=== PATIENT | male | born 1970 | race Caucasian/White ===

== ENCOUNTER → 2019-07-03 09:42 | Outpatient (CLI) | payer OTHER, SELFPAY ==
[2017-01-09 10:04] VITALS: BMI 33.5
--- NOTE | 2019-07-03 09:50 | RAD_ITS ---
STUDY: X-RAY - LEFT KNEE REASON FOR EXAM: Male, 49 years old. LEFT KNEE PAIN X 6-8 WEEKS -- NKI -- MEDIAL PAIN TECHNIQUE: Floor view(s) of the knee. COMPARISON: None. FINDINGS: Normal visualized distal femur. Normal visualized proximal tibia and fibula. Normal proximal tibiofibular articulation. Normal medial femorotibial compartment. Normal lateral femorotibial compartment. Mild narrowing of the patellofemoral articulation with minimal spur formation. Small joint effusion in the suprapatellar bursa. The soft tissue structures are unremarkable. RAD/Knee 4 or More Views IMPRESSION: 1. 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 2. No acute osseous abnormality of the left knee. Electronically Signed: Lincoln House MD at 10:19 EST , Service support ,
== END ==
PROVIDERS: Referring Provider Family Medicine; Visit Provider Family Medicine
DX: M25.562 Pain in left knee (principal)
CPT/HCPCS: 73564

== ENCOUNTER 2021-09-19 14:26 | Outpatient (CLI) | payer OTHER, SELFPAY ==
[2021-09-19 15:29] LABS: Erythrocyte Sedimentation Rate 21 mm/hr (0-20)
[2021-09-19 15:32] LABS: Absolute Lymphocyte Count 1.54 X10^3/uL (0.83-4.51); Absolute Neutrophil Count 4.9 X10^3/uL (2.0-7.7); Basophil# 0.09 X10^3/uL; Basophil% 1.3 % (0-1); Eosinophil# 0.06 X10^3/uL; Eosinophils% 0.8 % (0-5); Hematocrit 46.1 % (40-54); Hemoglobin 15.9 g/dL (13.0-16.5); Lymphocyte # 1.54 X10^3/ul (0.83-4.51); Lymphocyte % 21.5 % (19-41); Mean Corp Hgb Conc 34.5 g/dL (32-36); Mean Corpuscular Hgb 31.9 pg (27.0-32.0); Mean Corpuscular Volume 92.6 fL (80-94); Mean Platelet Vol. 10.4 fl (6.2-12.0); Monocyte% 8.4 % (0-10); NRBC Flagged by Analyzer 0 % (0-5); Neutrophil # 4.85 X10^3/uL (2.7-7.7); Neutrophil % 67.7 % (47-70); Platelet Count 201 K/mm3 (150-450); RBC Distribution Width CV 11.9 % (11.6-14.6); RBC Distribution Width SD 41.1 fl (35.1-43.9); Red Blood Count 4.98 M/mm3 (4.6-6.2); White Blood Count 7.2 K/mm3 (4.4-11.0)
[2021-09-19 15:38] LABS: ALB/GLOB Ratio 0.9 RATIO (0.9-2.4); AST(SGOT) 242 U/L (15-37); Alanine Aminotransfer ALT/SGPT 129 U/L (16-61); Albumin, Serum 3.9 g/dL (3.2-5.0); Alkaline Phosphatase 116 U/L (45-117); Anion Gap 8 (5-15); BUN 7 mg/dL (7-18); BUN/Creat Ratio 8.8 RATIO (10-20); Bilirubin, Direct 0.26 mg/dL (0.00-0.30); Calcium,Total 9.7 mg/dL (8.5-10.1); Chloride 99 mmol/L (98-107); Creatinine, Serum 0.79 mg/dL (0.70-1.30); EST Glomerular Filtration Rate 110 mL/min (>60); Est Glom Filt Rate - Afr Amer 133 mL/min (>60); Ferritin 1275 ng/mL (26-388); Globulin 4.2 g/dL (2.2-4.2); Glucose 103 mg/dL (74-106); Protein, Total 8.1 g/dL (6.4-8.2); Sodium Level 135 mmol/L (136-145)
[2021-09-19 15:40] LABS: Vitamin B12 1248 pg/mL (211-911)
[2021-09-19 16:06] LABS: Prothrombin Time (Protime)PT. 13.1 SECONDS (11.7-14.9)
[2021-09-23 20:24] LABS: Vitamin D 1,25-Dihydroxy 35.9 pg/mL (19.9-79.3)
[2021-09-28 01:06] LABS: Endomysial Antibody IgA Negative (Negative); Immunoglobulin A 207 mg/dL (90-386); Immunoglobulin E 212 IU/mL (6-495); Immunoglobulin G 965 mg/dL (603-1613); Immunoglobulin M 93 mg/dL (20-172)
[2021-09-28 09:35] LABS: Gastrin, Serum < 10 pg/mL (0-115); t-Transglutaminase IgA <2 U/mL (0-3)
== END 2021-09-19 23:59 | disposition home or self-care (01) ==
LOC: LAB 14:28
PROVIDERS: Referring Provider Nurse Practitioner Adult Health; Visit Provider Nurse Practitioner Adult Health
DX: K52.9 Noninfective gastroenteritis and colitis, unspecified (principal); R11.10 Vomiting, unspecified
CPT/HCPCS: 36415; 80053; 82248; 82607; 82652; 82728; 82746; 82784; 82785; 82941; 83516; 84443; 85025; 85610; 85652; 86140; 86255

== ENCOUNTER → 2021-09-26 | Outpatient (CLI) | payer OTHER, SELFPAY ==
--- NOTE | 2021-09-26 08:19 | US_ITS ---
STUDY: ABDOMINAL ULTRASOUND - RIGHT UPPER QUADRANT REASON FOR VISIT: Male, 51 years old chronic vomiting, chronic diarrhea, alcohol abuse -- RUQ TECHNIQUE: Ultrasound evaluation of the right upper quadrant was performed with real-time and static gramajo-scale imaging. TECHNICAL QUALITY: Adequate. COMPARISON: None. FINDINGS: Liver: The liver is enlarged and measures 20.5 cm. There is increased echogenicity consistent with fatty infiltration. The bile ducts are within normal limits. There is hepatic color flow. The direction of portal flow is hepatopetal. There is no demonstrated mass lesion. Gallbladder: Normal distended gallbladder. The gallbladder wall measures 3 mm. There is a negative sonographic Pizano''s sign. There is no pericholecystic fluid. There are no gallstones. Common Bile Duct (C.B.D.): The common bile duct measures 5 mm. Pancreas: Normal size of the head, body and tail of the pancreas. There is normal echogenicity of the pancreas. There is no demonstrated pancreatic mass or cyst. Right Kidney: Normal size of the right kidney. The right kidney measures 11.9 cm x 5 cm x 5.6 cm. Normal renal cortex. The right cortex measures 1.7 cm. There is no demonstrated renal mass or cyst. There is no right hydronephrosis. US/Abdomen Limited IMPRESSION: Hepatomegaly and diffuse fatty infiltration of the liver. Electronically Signed: Robin Joyce MD at 14:44 EDT ,
[2021-09-29 10:02] LABS: Calprotectin, Stool 23 ug/g (0-120)
== END | disposition home or self-care (01) ==
PROVIDERS: PCP Family Medicine; Referring Provider Nurse Practitioner Adult Health; Visit Provider Nurse Practitioner Adult Health
DX: K52.9 Noninfective gastroenteritis and colitis, unspecified (principal); R11.10 Vomiting, unspecified; R10.11 Right upper quadrant pain; R19.7 Diarrhea, unspecified
CPT/HCPCS: 76705; 83630; 83993; 87177; 87209; 87329; 87493; 87506

== ENCOUNTER 2022-05-23 18:12 | Inpatient (IN) | payer OTHER, SELFPAY ==
[2022-05-23] VITALS (10 sets, daily range): BP systolic 80–136; BP diastolic 49–91; PULSE 90–120; RESP 12–22; TEMP 36.6–36.7; O2SAT 87–96; BMI 34.8
--- NOTE | 2022-05-23 18:57 | EDS_ITS ---
HPI HPI - GI History of Present Illness Chief Complaint: GI Bleed Informant: patient Narrative Narrative: About 4 hours ago, patient had sudden urge to defecate and he had a large amount of blood per rectum. A little bit later, he ate dinner and subsequently felt nauseated and vomited up food with a significant amount of blood and some clots. No coffee grounds or anything else unusual. He denies any abdominal pain. Never had this happen before. Takes no anticoagulants. States he has noticed unexplained bruising off and on for a while. Denies any known family history of bleeding or clotting disorders but states his mom is on a blood thinner for unknown reason but has multiple medical problems. Right now he has unexplained bruising on both of his thighs and his right anterior knee. He denies any pain there. He has not had any unknown bleeding from anywhere including his intestines in the past. He takes no antiplatelet medications. He admits to being somewhat of a heavy drinker for the past 4 years, drinking 4- 6 drinks of vodka per night. Today he has had about a cup of it so far. [facility] Medical History Alcohol use disorder Arthritis Chronic diarrhea Chronic vomiting COPD (chronic obstructive pulmonary disease) Diarrhea Erectile dysfunction Fatty liver Hypertension Insomnia Lumbar degenerative disc disease Plantar fasciitis Tobacco use Vomiting Home Medications amitriptyline 25 mg tablet 25 mg PO DAILY 08/24/21 [History Last Taken Unknown] amlodipine 5 mg tablet 5 mg PO DAILY 08/24/21 [History Last Taken Unknown] celecoxib 200 mg capsule (Celebrex) 200 mg PO DAILY 08/24/21 [History Last Taken Unknown] lisinopril 20 mg tablet 20 mg PO BID 08/24/21 [History Last Taken Unknown] meloxicam 15 mg tablet 15 mg PO DAILY 08/24/21 [History Last Taken Unknown] sildenafil (pulm.hypertension) 20 mg tablet 20 mg PO BID 08/24/21 [History Last Taken Unknown] Allergy/AdvReac Type Severity Reaction Status Date / Time No Known Allergies Allergy Verified 05/23/22 18:13 Family History Mother Diabetes Surgical History Hx of tonsillectomy Social History Smoking Status: Current every day smoker tobacco type: cigarettes alcohol intake: current alcohol intake frequency: 0-2 drinks per day ROS ROS ED Constitutional Constitutional ED: Reports malaise; Denies chills or fever(s) Eyes Eyes: Denies change in vision or diplopia ENT ENT ED: Denies rhinorrhea or sore throat Cardiovascular Cardiovascular: Denies chest pain or palpitations Respiratory/Chest Respiratory/Chest: Denies cough or dyspnea Gastrointestinal Gastrointestinal: Reports hematochezia, nausea and vomiting; Denies abdominal pain, diarrhea, hemorrhoids or melena Genitourinary Genitourinary ED: Denies dysuria or hematuria Musculoskeletal Musculoskeletal: Denies back pain or neck pain Integumentary Denies abscess or rash Neurologic Neurologic: Denies headache(s), paresthesias or weakness Psychiatric Psychiatric: Denies anxiety or suicidal thoughts Hematologic/Lymphatic Hematologic/Lymphatic: Reports easy bleeding and easy bruising EXAM Physical Exam Const Vital Signs: 05/23/22 18:13 05/23/22 19:00 05/23/22 19:22 Temperature 97.8 F Temperature Source Temporal Pulse Rate 120 H 93 Respiratory Rate 18 17 Blood Pressure 113/81 H 103/65 Blood Pressure Mean 91 77 Pulse Ox 94 87 95 Oxygen Delivery Method Room Air Room Air Nasal Cannula Oxygen Flow Rate (L/min) 2 05/23/22 19:50 05/23/22 20:45 Temperature Temperature Source Pulse Rate 93 90 Respiratory Rate 17 16 Blood Pressure 109/77 121/86 H Blood Pressure Mean 87 97 Pulse Ox 96 96 Oxygen Delivery Method Nasal Cannula Nasal Cannula Oxygen Flow Rate (L/min) 2 2 Positive well nourished and well developed General Appearance ED: well developed and NAD HEENT Reports moist mucous membranes normocephalic and atraumatic Eyes PERRL and EOMs intact bilaterally Neck full ROM and supple Resp normal respiratory effort and clear to auscultation bilaterally Cardio regular rate, regular rhythm and no murmurs GI non-tender and non-distended GI Narrative: Rectal: Nontender, trace blood present no active bleeding/pooling Auscultation: normoactive bowel sounds Palpation: soft Back/Spine no CVA tenderness General Back: other FROM Extremity normal to inspection General Extremety ED: Negative for edema, pulses abnormal or tenderness General Extremity: Negative for edema or pulses abnormal Neuro oriented x3, CN's II-XII intact bilaterally and no sensory deficits noted Sensorium / Orientation: awake and alert Motor Exam: strength 5/5 throughout Psych mental status grossly normal and thought process normal Skin no rashes or lesions noted and no wounds Skin Narrative: Couple ecchymoses on both thighs and right anterior knee. MDM MDM MDM Narrative Medical decision making narrative: Patient was initially hypotensive, a line was started immediately and IV fluid bolus was begun, normal saline. His blood pressure responded nicely and he did not become hypotensive again. He was given Zofran, and empirically started on Protonix drip, after being provided an 80 mg bolus. He did not have any further episodes of GI bleeding or vomiting. His work-up shows a normal hemoglobin at this time of 13.7, his BUN is elevated to suggest an upper source which would be consistent with his alcohol use, as is a slight AST and ALT elevations. Working diagnosis of alcoholic gastritis, but given the transient hypotension and amount of bleeding the patient described, discussed with GI who agrees with admitting him and request Rocephin 1 g every 24 hours in addition to starting an octreotide drip which will be done in the ER. Lab Data Attestation: I reviewed the patient's lab results. Labs: Laboratory Results - last 24 hr 05/23/22 05/23/22 05/23/22 18:52 18:52 18:52 WBC 9.5 RBC 4.23 L Hgb 13.7 Hct 41.3 MCV 97.6 H MCH 32.4 H MCHC 33.2 RDW Std Deviation 46.5 H RDW Coeff of Mignon 13.0 Plt Count 231 MPV 10.5 Immature Gran % (Auto) 0.300 Neut % (Auto) 65.8 Lymph % (Auto) 23.3 [place] % (Auto) 8.7 Eos % (Auto) 1.1 Baso % (Auto) 0.8 Absolute Neuts (auto) 6.3 Absolute Lymphs (auto) 2.22 Nucleated RBC % 0 PT 13.8 INR 1.1 APTT 27.1 Fibrinogen 283 Sodium 135 L Potassium 4.3 Chloride 99 Carbon Dioxide 30.0 Anion Gap 6 BUN 25 H Creatinine 1.05 Estim Creat Clear Calc 88.65 Est GFR (MDRD) Af Amer 96 Est GFR (MDRD) Non-Af 79 BUN/Creatinine Ratio 23.8 H Glucose 125 H Calcium 9.3 Total Bilirubin 0.90 Direct Bilirubin 0.31 H AST 106 H ALT 124 H Alkaline Phosphatase 85 Total Protein 7.0 Albumin 3.5 Globulin 3.5 Blood Type Antibody Screen 05/23/22 19:17 WBC RBC Hgb Hct MCV MCH MCHC RDW Std Deviation RDW Coeff of Mignon Plt Count MPV Immature Gran % (Auto) Neut % (Auto) Lymph % (Auto) [place] % (Auto) Eos % (Auto) Baso % (Auto) Absolute Neuts (auto) Absolute Lymphs (auto) Nucleated RBC % PT INR APTT Fibrinogen Sodium Potassium Chloride Carbon Dioxide Anion Gap BUN Creatinine Estim Creat Clear Calc Est GFR (MDRD) Af Amer Est GFR (MDRD) Non-Af BUN/Creatinine Ratio Glucose Calcium Total Bilirubin Direct Bilirubin AST ALT Alkaline Phosphatase Total Protein Albumin Globulin Blood Type O POSITIVE Antibody Screen NEGATIVE Critical Care Time Critical Care Time: Yes Critical care time (excluding procedures): 30-74 minutes (34 min), Including time spent:, Discussing w/Patient &/or Family/Commercial Credit Head, Discussing w/Consultants, Arranging Admission or Transfer and Performing Direct Patient Care at Bedside Discharge Plan Triage Chief Complaint: GI Bleed ED Provider: Alfredo Koch Dx/Rx/DC Orders Clinical Impression: Acute upper gastrointestinal bleeding, Hemorrhagic shock, Acute alcoholic gastritis Prescriptions: No Action amitriptyline 25 mg tablet 25 mg PO DAILY amlodipine 5 mg tablet 5 mg PO DAILY celecoxib [Celebrex] 200 mg capsule 200 mg PO DAILY lisinopril 20 mg tablet 20 mg PO BID sildenafil (pulm.hypertension) 20 mg tablet 20 mg PO BID Rx Instructions: administer doses at least 4-6 hours apart meloxicam 15 mg tablet 15 mg PO DAILY Primary Care Provider: Pasquale Lopez Referrals: Pasquale Lopez DO [Primary Care Provider] - Disposition Disposition: Acute Care Hospital [facility]
[2022-05-23] MEDS: 0.9% Normal Saline 1,000 ML 999 ML IV ×2 (19:01→23:49)
[2022-05-23] MEDS: Ondansetron 4 MG/2 ML Vial IV (19:05)
[2022-05-23 19:13] LABS: Absolute Lymphocyte Count 2.22 X10^3/uL (0.83-4.51); Absolute Neutrophil Count 6.3 X10^3/uL (2.0-7.7); Basophil# 0.08 X10^3/uL; Basophil% 0.8 % (0-1); Eosinophils% 1.1 % (0-5); Hematocrit 41.3 % (40-54); Hemoglobin 13.7 g/dL (13.0-16.5); Lymphocyte # 2.22 X10^3/ul (0.83-4.51); Lymphocyte % 23.3 % (19-41); Mean Corp Hgb Conc 33.2 g/dL (32-36); Mean Corpuscular Hgb 32.4 pg (27.0-32.0); Mean Corpuscular Volume 97.6 fL (80-94); Mean Platelet Vol. 10.5 fl (6.2-12.0); Monocyte# 0.83 X10^3/uL; Monocyte% 8.7 % (0-10); NRBC Flagged by Analyzer 0 % (0-5); Neutrophil # 6.26 X10^3/uL (2.7-7.7); Neutrophil % 65.8 % (47-70); Platelet Count 231 K/mm3 (150-450); RBC Distribution Width SD 46.5 fl (35.1-43.9); Red Blood Count 4.23 M/mm3 (4.6-6.2); White Blood Count 9.5 K/mm3 (4.4-11.0)
[2022-05-23 19:29] LABS: Fibrinogen 283 mg/dl (203-444)
[2022-05-23 19:30] LABS: AST(SGOT) 106 U/L (15-37); Alanine Aminotransfer ALT/SGPT 124 U/L (16-61); Albumin, Serum 3.5 g/dL (3.2-5.0); Alkaline Phosphatase 85 U/L (45-117); Anion Gap 6 (5-15); BUN 25 mg/dL (7-18); BUN/Creat Ratio 23.8 RATIO (10-20); Bilirubin, Direct 0.31 mg/dL (0.00-0.30); Calcium,Total 9.3 mg/dL (8.5-10.1); Chloride 99 mmol/L (98-107); Creatinine, Serum 1.05 mg/dL (0.70-1.30); EST Glomerular Filtration Rate 79 mL/min (>60); Est Glom Filt Rate - Afr Amer 96 mL/min (>60); Estimated Creatinine Clearance 88.65 ml/min; Globulin 3.5 g/dL (2.2-4.2); Glucose 125 mg/dL (74-106); Partial Thromboplast Time 27.1 Seconds (24.1-36.2); Potassium 4.3 mmol/L (3.5-5.1); Sodium Level 135 mmol/L (136-145)
[2022-05-23 19:35] LABS: International Normalized Ratio 1.1; Prothrombin Time (Protime)PT. 13.8 SECONDS (11.7-14.9)
--- NOTE | 2022-05-23 21:15 | PCM.HP.STD ---
HPI - General General Date of Admission: 05/23/22 Date of Service: 05/23/22 Chief Complaint: Hematemesis and hematochezia HPI Narrative ANKUR HUBBARD, is a 52 M with a significant history of alcoholism; tobacco abuse and hypertension who presents emergency department with hematemesis and hematochezia. Patient reported that while at 2 different shops he had maroon color stool x1 at each place.. At home he had two episodes of bright red blood in his stool. After eating patient vomited and there was blood in the vomitus. All his symptoms have been on the same day of presentation. Patient is an alcoholic who drinks reportedly 10 drinks per day. He drinks vodka. On the day of presentation he drank 2 times before coming to the emergency department. ED DOC discussed the case with ict systems test engineer who recommended octreotide and ceftriaxone in addition to Protonix that patient was given at the ED. [facility] Medical History Alcohol use disorder Arthritis Chronic diarrhea Chronic vomiting COPD (chronic obstructive pulmonary disease) Diarrhea Erectile dysfunction Fatty liver Hypertension Insomnia Lumbar degenerative disc disease Plantar fasciitis Tobacco use Vomiting Home Medications amitriptyline 25 mg tablet 25 mg PO DAILY 08/24/21 [History Last Taken Unknown] amlodipine 5 mg tablet 5 mg PO DAILY 08/24/21 [History Last Taken Unknown] celecoxib 200 mg capsule (Celebrex) 200 mg PO DAILY 08/24/21 [History Last Taken Unknown] lisinopril 20 mg tablet 20 mg PO BID 08/24/21 [History Last Taken Unknown] meloxicam 15 mg tablet 15 mg PO DAILY 08/24/21 [History Last Taken Unknown] sildenafil (pulm.hypertension) 20 mg tablet 20 mg PO BID 08/24/21 [History Last Taken Unknown] Allergy/AdvReac Type Severity Reaction Status Date / Time No Known Allergies Allergy Verified 05/23/22 18:13 Family History Mother Diabetes Surgical History Hx of tonsillectomy Social History Smoking Status: Current every day smoker tobacco type: cigarettes alcohol intake: current alcohol intake frequency: 0-2 drinks per day ROS ROS Narrative Pertinent positives and pertinent negatives as noted in HPI. All other systems were reviewed and are negative Vital Signs Vital Signs Vital Signs: 05/23/22 18:13 05/23/22 19:00 05/23/22 19:22 Temperature 97.8 F Temperature Source Temporal Pulse Rate 120 H 93 Respiratory Rate 18 17 Blood Pressure 113/81 H 103/65 Blood Pressure Mean 91 77 Pulse Ox 94 87 95 Oxygen Delivery Method Room Air Room Air Nasal Cannula Oxygen Flow Rate (L/min) 2 05/23/22 19:50 05/23/22 20:45 Temperature Temperature Source Pulse Rate 93 90 Respiratory Rate 17 16 Blood Pressure 109/77 121/86 H Blood Pressure Mean 87 97 Pulse Ox 96 96 Oxygen Delivery Method Nasal Cannula Nasal Cannula Oxygen Flow Rate (L/min) 2 2 Weight Weight: 113.3 kg Body Mass Index (BMI) 34.8 Physical Exam Narrative Physical exam: General: Well-nourished, well-developed. Head: Normocephalic, atraumatic, no tenderness Eyes: Vision is grossly intact. EOMI ENT, no trauma, moist mucous membranes, no rhinorrhea Neck: Nontender, No thyromegaly. CVS: Regular rate and rhythm. S1-S2 present. No murmur, gallop or rub. Respiratory : clear to auscultation bilaterally, chest wall nontender, no wheezing Abdomen: Soft, nontender, nondistended, normal bowel sounds, no masses : Deferred Back: Nontender, no CVA tenderness, no midline spinal tenderness, deformities, step-offs Extremities: Nontender full range of motion, no trauma. Ecchymosis on left knee. Scattered petechiae on bilateral lower extremities. Skin: Normal color, no trauma, abrasions Neuro: Alert, oriented, cranial nerves II through XII grossly intact. Psychiatry: Normal mood. Normal affect. Not depressed. Not anxious. Results Lab / Micro Data Result Diagrams: 05/24/22 02:35 05/23/22 18:52 Labs: Laboratory Results - last 24 hr 05/23/22 18:52: WBC 9.5, RBC 4.23 L, Hgb 13.7, Hct 41.3, MCV 97.6 H, MCH 32.4 H, MCHC 33.2, RDW Std Deviation 46.5 H, RDW Coeff of Mignon 13.0, Plt Count 231, MPV 10.5, Immature Gran % (Auto) 0.300, Neut % (Auto) 65.8, Lymph % (Auto) 23.3, [place] % (Auto) 8.7, Eos % (Auto) 1.1, Baso % (Auto) 0.8, Absolute Neuts (auto) 6.3, Absolute Lymphs (auto) 2.22, Nucleated RBC % 0 05/23/22 18:52: PT 13.8, INR 1.1, APTT 27.1, Fibrinogen 283 05/23/22 18:52: Sodium 135 L, Potassium 4.3, Chloride 99, Carbon Dioxide 30.0, Anion Gap 6, BUN 25 H, Creatinine 1.05, Estim Creat Clear Calc 88.65, Est GFR (MDRD) Af Amer 96, Est GFR (MDRD) Non-Af 79, BUN/Creatinine Ratio 23.8 H, Glucose 125 H, Calcium 9.3, Total Bilirubin 0.90, Direct Bilirubin 0.31 H, AST 106 H, ALT 124 H, Alkaline Phosphatase 85, Total Protein 7.0, Albumin 3.5, Globulin 3.5 05/23/22 19:17: Blood Type O POSITIVE, Antibody Screen NEGATIVE Assessment & Plan Assessment/Plan (1) Acute upper gastrointestinal bleeding: PLAN: Plan Acute upper gastrointestinal bleeding Initial hemoglobin on presentation was 13.7. Trend H&H. BUN elevated at 25. Reportedly the patient was hypotensive with systolic blood pressure in the 70s initially at the ED but responded to IV fluids. Thereafter patient got up to go to very diaphoretic at the emergency department and was hypotensive again. Normal saline bolus was given. Patient to be admitted to the intensive care unit. Placed on a octreotide drip and Protonix drip at emergency department and continued. Ceftriaxone IV ordered. GI consult. Alcoholism Placed on CIWA protocol with ativan. IV thiamine and IV folic acid ordered. Hyponatremia Mildly low sodium of 135, chronic. Likely secondary to beer potomania. Consult. Elevated liver enzymes AST of 106. ALT of 124. Review of record showed that on 09/19/2021 his AST was 242; his ALT was 129. Like secondary to alcoholism. Counseled. History of hypertension Patient noted to be hypotensive at emergency department. Hold home blood pressure medications. Trend blood pressures. DVT prophylaxis: SCDs ordered. Charges/Coding Visit Charges Inpatient E&M: 85043 Init Hosp L3
[2022-05-23] MEDS: Ceftriaxone 1 GM/50 ML BAG IV (21:25)
--- NOTE | 2022-05-23 23:00 | CON.PCM.GI_ITS ---
HPI Consult Data Date of Consult: 05/23/22 HPI Narrative Reason for Consultation: GI bleed HPI Narrative: ANKUR HUBBARD, is a 52 M who presents with hematemesis and melanotic stools. He was recently seen in GI clinic for chronic diarrhea and heartburn. He was scheduled to have a EGD and colonoscopy in the near future. 5 he has a signifi cant history of alcoholism; tobacco abuse and hypertension who presents emergency department with hematemesis and hematochezia.? Patient reported that while at 2 different shops he had maroon color stool x1 at each place.. At home he had two episodes of bright red blood in his stool.? After eating patient vomited and there was blood in the vomitus.? All his symptoms have been on the same day of presentation. Patient is an alcoholic who drinks reportedly 10 drinks per day.? He? drinks vodka.? On the day of presentation he drank 2 times before coming to the emergency department. I recommended octreotide and ceftriaxone in addition to Protonix that patient was given at the ED. [facility] Medical History Alcohol use disorder Arthritis Chronic diarrhea Chronic vomiting COPD (chronic obstructive pulmonary disease) Diarrhea Erectile dysfunction Fatty liver Hypertension Insomnia Lumbar degenerative disc disease Plantar fasciitis Tobacco use Vomiting Home Medications amitriptyline 25 mg tablet 25 mg PO DAILY 08/24/21 [History Last Taken Unknown] amlodipine 5 mg tablet 5 mg PO DAILY 08/24/21 [History Last Taken Unknown] celecoxib 200 mg capsule (Celebrex) 200 mg PO DAILY 08/24/21 [History Last Taken Unknown] lisinopril 20 mg tablet 20 mg PO BID 08/24/21 [History Last Taken Unknown] meloxicam 15 mg tablet 15 mg PO DAILY 08/24/21 [History Last Taken Unknown] sildenafil (pulm.hypertension) 20 mg tablet 20 mg PO BID 08/24/21 [History Last Taken Unknown] Allergy/AdvReac Type Severity Reaction Status Date / Time No Known Allergies Allergy Verified 05/23/22 18:13 Family History Mother Diabetes Surgical History Hx of tonsillectomy Social History Smoking Status: Current every day smoker tobacco type: cigarettes alcohol intake: current alcohol intake frequency: 0-2 drinks per day ROS ROS Narrative Pertinent positives and pertinent negatives as noted in HPI. All other systems were reviewed and are negative Review of Systems ROS Unobtainable: other Constitutional Constitutional: Denies fatigue, fever(s), poor appetite, weight gain or weight loss ENT HEENT: Denies mouth lesions Cardiovascular Cardiovascular: Denies abdominal bloating, abdominal edema or abdominal pain Respiratory/Chest Respiratory/Chest: Denies change in mental status, change in phlegm color, chest congestion or chest tightness Gastrointestinal Gastrointestinal: Denies belching, bloating, change in bowel habits, change in stool character, chewing difficulty, coffee ground emesis, constipation, cramping, diarrhea, dyspepsia, dysphagia, early satiety, excessive flatus, fecal incontinence, heartburn, hematemesis, hematochezia, hemorrhoids, loose stools, melena, nausea, odynophagia, rectal bleeding, tenesmus, vomiting or weight changes Genitourinary Genitourinary: Denies abdominal discomfort, burning urination or itching Musculoskeletal Musculoskeletal: Reports as per HPI; Denies muscle weakness or myalgias Integumentary Integumentary: Denies jaundice Neurologic Neurologic: Denies lack of coordination or weakness Psychiatric Psychiatric: Denies confusion, depression, memory loss, mood swings, paranoia or suicidal ideation Endocrine Endocrinology: Denies systems reviewed and no addt'l complaints, except as documented Hematologic/Lymphatic Hematologic/Lymphatic: Denies anemia, easy bleeding, easy bruising or lymph adenopathy Allergic/Immunologic Allergic/Immunologic: Denies systems reviewed and no addt'l complaints, except as documented Physical Exam Narrative Physical exam General: Alert, Oriented x3, Cooperative. No tremors. HEENT: Atraumatic, PERRLA, EOMI, Normocephalic. No obvious icterus Oral: Oral mucosa moist. No Gingival or Mucosal Lesions/ Ulcerations Neck: Supple, No JVD, Negative Carotid Bruits Lungs: Air entry diminished in bilateral lung bases. No crepitation/rhonchi Cardiovascular: Regular rate, Regular Rhythm, Normal S1, Normal S2, No murmurs Abdomen: Bowel Sounds Present, Soft, Non Tender, Non-Distended : No renal angle tenderness. No suprapubic tenderness. Extremities: No edema, Capillary Refill Less than 3 Seconds Skin: No rashes, No breakdown Musculoskeletal: No Tenderness to Palpation of Joints or Extremities Neurological: Cranial nerves II-XII grossly intact, DTR 2+/4 and Symmetrical, Neuro grossly intact Psych/Mental Status: Flat affect Lab / Micro Data Result Diagrams: 05/24/22 16:11 05/24/22 04:25 Labs: Laboratory Results - last 24 hr 05/23/22 18:52: WBC 9.5, RBC 4.23 L, Hgb 13.7, Hct 41.3, MCV 97.6 H, MCH 32.4 H, MCHC 33.2, RDW Std Deviation 46.5 H, RDW Coeff of Mignon 13.0, Plt Count 231, MPV 10.5, Immature Gran % (Auto) 0.300, Neut % (Auto) 65.8, Lymph % (Auto) 23.3, [place] % (Auto) 8.7, Eos % (Auto) 1.1, Baso % (Auto) 0.8, Absolute Neuts (auto) 6.3, Absolute Lymphs (auto) 2.22, Nucleated RBC % 0 05/23/22 18:52: PT 13.8, INR 1.1, APTT 27.1, Fibrinogen 283 05/23/22 18:52: Sodium 135 L, Potassium 4.3, Chloride 99, Carbon Dioxide 30.0, Anion Gap 6, BUN 25 H, Creatinine 1.05, Estim Creat Clear Calc 88.65, Est GFR (MDRD) Af Amer 96, Est GFR (MDRD) Non-Af 79, BUN/Creatinine Ratio 23.8 H, Glucose 125 H, Calcium 9.3, Total Bilirubin 0.90, Direct Bilirubin 0.31 H, AST 106 H, ALT 124 H, Alkaline Phosphatase 85, Total Protein 7.0, Albumin 3.5, Globulin 3.5 05/23/22 19:17: Blood Type O POSITIVE, Antibody Screen NEGATIVE 05/24/22 02:35: Hgb 10.2 L, Hct 31.5 L 05/24/22 02:35: Sodium Cancelled, Potassium Cancelled, Chloride Cancelled, Carbon Dioxide Cancelled, Anion Gap Cancelled, BUN Cancelled, Creatinine Cancelled, Estim Creat Clear Calc Cancelled, Est GFR (MDRD) Af Amer Cancelled, Est GFR (MDRD) Non-Af Cancelled, BUN/Creatinine Ratio Cancelled, Glucose Cancelled, Calcium Cancelled 05/24/22 04:25: Sodium 135 L, Potassium 5.5 H, Chloride 103, Carbon Dioxide 26.0, Anion Gap 6, BUN 31 H, Creatinine 0.95, Estim Creat Clear Calc 97.98, Est GFR (MDRD) Af Amer 107, Est GFR (MDRD) Non-Af 89, BUN/Creatinine Ratio 32.6 H, Glucose 137 H, Calcium 7.7 L 05/24/22 08:40: Hgb 9.6 L, Hct 28.3 L 05/24/22 16:11: Hgb 8.8 L, Hct 27.9 L Assessment & Plan Assessment/Plan (1) Acute upper gastrointestinal bleeding: PLAN: Differential diagnosis for his acute GI bleed in the setting of NSAID usage in alcoholism does include alcoholic gastritis, peptic ulcer disease, angiodysplasia associated with alcoholism and possible portal hypertension, malignancy. He should undergo an emergent upper endoscopy. I had already put him on Protonix and Sandostatin. He should remain n.p.o. He was explained alternatives, risk, benefits include not withstanding bleeding, infection, sepsis, perforation, need for emergent or . He will have an ASA of 3. Charges/Coding Visit Charges Inpatient E&M: 78384 Init Hosp L2
--- NOTE | 2022-05-23 23:51 | ED.RN ---
PT UP TO BSC. CAME OUT TO NURSE DESK AND SAID PT WOULD LIKE TO GET UP TO THE BATHROOM INSTEAD. WENT IN TO ASSIST PATIENT. PT NOTED TO BE DIAPHORETIC AND PALE. PT ASSISTED FROM BSC TO BED. BP 82/49, HR 100. DR. CADENA UPDATED. NEW ORDER TO GIVE 1 LITER NS BOLUS STAT & CHANGE ADMISSION TO ICU. CHARGE NURSE AND HUMID SYSTEM OPERATOR AWARE. SPOUSE REMAINS AT BEDSIDE & UPDATED ON ADMISSION PLAN.
[2022-05-24] VITALS (32 sets, daily range): BP systolic 61–139; BP diastolic 45–98; PULSE 93–118; RESP 12–22; TEMP 36.6–36.9; O2SAT 90–100; BMI 34.9
[2022-05-24 02:40] LABS: Hematocrit 31.5 % (40-54); Hemoglobin 10.2 g/dL (13.0-16.5)
[2022-05-24] MEDS: 0.9% Normal Saline 1,000 ML 100 ML IV ×2 (02:49→14:43)
[2022-05-24 04:50] LABS: Anion Gap 6 (5-15); BUN 31 mg/dL (7-18); BUN/Creat Ratio 32.6 RATIO (10-20); Calcium,Total 7.7 mg/dL (8.5-10.1); Chloride 103 mmol/L (98-107); Creatinine, Serum 0.95 mg/dL (0.70-1.30); EST Glomerular Filtration Rate 89 mL/min (>60); Est Glom Filt Rate - Afr Amer 107 mL/min (>60); Estimated Creatinine Clearance 97.98 ml/min; Glucose 137 mg/dL (74-106); Potassium 5.5 mmol/L (3.5-5.1); Sodium Level 135 mmol/L (136-145)
[2022-05-24 08:48] LABS: Hematocrit 28.3 % (40-54); Hemoglobin 9.6 g/dL (13.0-16.5)
--- NOTE | 2022-05-24 09:08 | PCM.PN.HOSP ---
Subjective Subjective Follow-up for GI bleed Objective Data Objective Data Vital Signs: Vital Signs Temp Pulse Resp BP Pulse Ox O2 Del Method O2 Flow Rate 98.2 F 98 12 89/64 L 94 Nasal Cannula 2 05/24/22 04:00 05/24/22 06:00 05/24/22 06:00 05/24/22 06:00 05/24/22 07:36 05/24/22 07:36 05/24/22 07:36 Oxygen Flow Rate (L/min) 2 Oxygen Delivery Method Nasal Cannula Weight: 254 lb 6.615 oz Body Mass Index (BMI) 34.9 Intake & Output: Intake and Output for Last 24 Hours 05/22/22 05/23/22 05/24/22 23:59 23:59 23:59 Intake Total 1085 / 1085 1092.5 / 1092.5 Output Total 500 / 500 Balance 1085 / 1085 592.5 / 592.5 Lab / Micro Data Result Diagrams: 05/24/22 08:40 05/24/22 04:25 Labs: Laboratory Results - last 24 hr 05/23/22 18:52: WBC 9.5, RBC 4.23 L, Hgb 13.7, Hct 41.3, MCV 97.6 H, MCH 32.4 H, MCHC 33.2, RDW Std Deviation 46.5 H, RDW Coeff of Mignon 13.0, Plt Count 231, MPV 10.5, Immature Gran % (Auto) 0.300, Neut % (Auto) 65.8, Lymph % (Auto) 23.3, [place] % (Auto) 8.7, Eos % (Auto) 1.1, Baso % (Auto) 0.8, Absolute Neuts (auto) 6.3, Absolute Lymphs (auto) 2.22, Nucleated RBC % 0 05/23/22 18:52: PT 13.8, INR 1.1, APTT 27.1, Fibrinogen 283 05/23/22 18:52: Sodium 135 L, Potassium 4.3, Chloride 99, Carbon Dioxide 30.0, Anion Gap 6, BUN 25 H, Creatinine 1.05, Estim Creat Clear Calc 88.65, Est GFR (MDRD) Af Amer 96, Est GFR (MDRD) Non-Af 79, BUN/Creatinine Ratio 23.8 H, Glucose 125 H, Calcium 9.3, Total Bilirubin 0.90, Direct Bilirubin 0.31 H, AST 106 H, ALT 124 H, Alkaline Phosphatase 85, Total Protein 7.0, Albumin 3.5, Globulin 3.5 05/23/22 19:17: Blood Type O POSITIVE, Antibody Screen NEGATIVE 05/24/22 02:35: Hgb 10.2 L, Hct 31.5 L 05/24/22 02:35: Sodium Cancelled, Potassium Cancelled, Chloride Cancelled, Carbon Dioxide Cancelled, Anion Gap Cancelled, BUN Cancelled, Creatinine Cancelled, Estim Creat Clear Calc Cancelled, Est GFR (MDRD) Af Amer Cancelled, Est GFR (MDRD) Non-Af Cancelled, BUN/Creatinine Ratio Cancelled, Glucose Cancelled, Calcium Cancelled 05/24/22 04:25: Sodium 135 L, Potassium 5.5 H, Chloride 103, Carbon Dioxide 26.0, Anion Gap 6, BUN 31 H, Creatinine 0.95, Estim Creat Clear Calc 97.98, Est GFR (MDRD) Af Amer 107, Est GFR (MDRD) Non-Af 89, BUN/Creatinine Ratio 32.6 H, Glucose 137 H, Calcium 7.7 L 05/24/22 08:40: Hgb 9.6 L, Hct 28.3 L Physical Exam Narrative Physical exam General: Alert, Oriented x3, Cooperative. No tremors. HEENT: Atraumatic, PERRLA, EOMI, Normocephalic. No obvious icterus Oral: Oral mucosa moist. No Gingival or Mucosal Lesions/ Ulcerations Neck: Supple, No JVD, Negative Carotid Bruits Lungs: Air entry diminished in bilateral lung bases. No crepitation/rhonchi Cardiovascular: Regular rate, Regular Rhythm, Normal S1, Normal S2, No murmurs Abdomen: Bowel Sounds Present, Soft, Non Tender, Non-Distended : No renal angle tenderness. No suprapubic tenderness. Extremities: No edema, Capillary Refill Less than 3 Seconds Skin: No rashes, No breakdown Musculoskeletal: No Tenderness to Palpation of Joints or Extremities Neurological: Cranial nerves II-XII grossly intact, DTR 2+/4 and Symmetrical, Neuro grossly intact Psych/Mental Status: Flat affect Assessment & Plan Assessment/Plan (1) Acute upper gastrointestinal bleeding: PLAN: Plan This is a 52-year-old Alyq male admitted hematemesis and melena. At home patient had total of 4 maroon color to bright red rectal bleed and then hematemesis after eating dinner with clots. Patient drinks vodka about 10 drinks per day. He did not 2 times before coming to ED. the patient BP was low hypotensive systolic in 70s therefore admitted in ICU. Acute upper gastrointestinal bleeding most likely due to duodenal ulcer: Patient admitted in ICU on high suspicion of variceal bleed with history of chronic alcohol use. Patient denied any prior EGD or colonoscopy. Initial hemoglobin on presentation was 13.7 dropped to 9.6. BUN elevated at 25. BP initially responded to fluid but remained low 100s. Mildly tachycardic heart rate 108/min. Patient was started on IV Protonix drip after bolus and octreotide drip. On IV ceftriaxone. GI consulted. Patient had EGD which showed long segment of White's esophagus biopsied. Likely spurting duodenal ulcer with visible vessel 12 mm injected treated with heater probe. Continue Protonix drip. History of chronic alcohol use disorder and dependence with risk of acute alcohol withdrawal syndrome: On CIWA protocol with ativan. IV thiamine and IV folic acid. CIWA score 0. Hyponatremia Mildly low sodium of 135, chronic. Likely secondary to beer potomania. Consult. 05/24: Repeat sodium remains 135. Chronic alcoholic hepatitis: AST of 106. ALT of 124. Review of record showed that on 09/19/2021 his AST was 242; his ALT was 129. History of hypertension Patient noted to be hypotensive at emergency department. Hold antihypertensive medication and monitor in ICU DVT prophylaxis: SCDs ordered. Pharmacologic prophylaxis contraindicated Total time of the visit including total time spent in counseling or coordination of care, (more than 50% of the total time, spent in obtaining medical information from nurses and other ancillary care providers,explaining to the patient about labs, imaging, diagnosis and management of active complex medical conditions), clinical update given to patient's significant others, discussion with GI, review of labs and imaging is 45 minutes. Laboratory Results 05/23/22 18:52: WBC 9.5, RBC 4.23 L, Hgb 13.7, Hct 41.3, MCV 97.6 H, MCH 32.4 H, MCHC 33.2, RDW Std Deviation 46.5 H, RDW Coeff of Mignon 13.0, Plt Count 231, MPV 10.5, Immature Gran % (Auto) 0.300, Neut % (Auto) 65.8, Lymph % (Auto) 23.3, [place] % (Auto) 8.7, Eos % (Auto) 1.1, Baso % (Auto) 0.8, Absolute Neuts (auto) 6.3, Absolute Lymphs (auto) 2.22, Nucleated RBC % 0 05/23/22 18:52: PT 13.8, INR 1.1, APTT 27.1, Fibrinogen 283 05/23/22 18:52: Sodium 135 L, Potassium 4.3, Chloride 99, Carbon Dioxide 30.0, Anion Gap 6, BUN 25 H, Creatinine 1.05, Estim Creat Clear Calc 88.65, Est GFR (MDRD) Af Amer 96, Est GFR (MDRD) Non-Af 79, BUN/Creatinine Ratio 23.8 H, Glucose 125 H, Calcium 9.3, Total Bilirubin 0.90, Direct Bilirubin 0.31 H, AST 106 H, ALT 124 H, Alkaline Phosphatase 85, Total Protein 7.0, Albumin 3.5, Globulin 3.5 05/23/22 19:17: Blood Type O POSITIVE, Antibody Screen NEGATIVE 05/24/22 02:35: Hgb 10.2 L, Hct 31.5 L 05/24/22 02:35: Sodium Cancelled, Potassium Cancelled, Chloride Cancelled, Carbon Dioxide Cancelled, Anion Gap Cancelled, BUN Cancelled, Creatinine Cancelled, Estim Creat Clear Calc Cancelled, Est GFR (MDRD) Af Amer Cancelled, Est GFR (MDRD) Non-Af Cancelled, BUN/Creatinine Ratio Cancelled, Glucose Cancelled, Calcium Cancelled 05/24/22 04:25: Sodium 135 L, Potassium 5.5 H, Chloride 103, Carbon Dioxide 26.0, Anion Gap 6, BUN 31 H, Creatinine 0.95, Estim Creat Clear Calc 97.98, Est GFR (MDRD) Af Amer 107, Est GFR (MDRD) Non-Af 89, BUN/Creatinine Ratio 32.6 H, Glucose 137 H, Calcium 7.7 L 05/24/22 08:40: Hgb 9.6 L, Hct 28.3 L Charges/Coding Visit Charges Inpatient E&M: 67466 Subs Hosp L3
--- NOTE | 2022-05-24 13:00 | CASEMGMT ---
RN CM: Attempted DC planning assessment. Pt out of his room at a procedure. Samson Ayala RN CM
--- NOTE | 2022-05-24 13:15 | NURSING ---
Patient off unit to endo for EGD
--- NOTE | 2022-05-24 14:07 | OP.EGD_ITS ---
Patient Name: Agusto Nam Procedure Date: 05/24/2022 1:17 PM Date of : 1970 Age: 52 Procedure: Upper GI endoscopy Indications: Melena Providers: Rod Geronimo DO Medicines: Monitored Anesthesia Care Patient Profile: This is a 52 year old male. Refer to note in patient chart for documentation of history and physical. Patient has symptoms of acute epigastric abdominal pain and acute nausea. Complications: No immediate complications. Procedure: Pre-Anesthesia Assessment: - Prior to the procedure, a History and Physical was performed, and patient medications and allergies were reviewed. The patient is competent. The risks and benefits of the procedure and the sedation options and risks were discussed with the patient. All questions were answered and informed consent was obtained. Patient identification and proposed procedure were verified by the physician in the pre-procedure area. Mental Status Examination: alert and oriented. Airway Examination: normal oropharyngeal airway and neck mobility. Respiratory Examination: clear to auscultation. CV Examination: normal. Prophylactic Antibiotics: The patient does not require prophylactic antibiotics. Prior Anticoagulants: The patient has taken no previous anticoagulant or antiplatelet agents. ASA Grade Assessment: II - A patient with mild systemic disease. After reviewing the risks and benefits, the patient was deemed in satisfactory condition to undergo the procedure. The anesthesia plan was to use monitored anesthesia care (MAC). Immediately prior to administration of medications, the patient was re-assessed for adequacy to receive sedatives. The heart rate, respiratory rate, oxygen saturations, blood pressure, adequacy of pulmonary ventilation, and response to care were monitored throughout the procedure. The physical status of the patient was re-assessed after the procedure. After obtaining informed consent, the endoscope was passed under direct vision. Throughout the procedure, the patient's blood pressure, pulse, and oxygen saturations were monitored continuously. The Endoscope was introduced through the mouth, and advanced to the second part of duodenum. The upper GI endoscopy was accomplished without difficulty. The patient tolerated the procedure well. Scope In: 1:30:40 PM Scope Out: 1:55:49 PM Total Procedure Duration Time 0 hours 25 minutes 9 seconds Findings: There were esophageal mucosal changes consistent with long-segment White's esophagus present in the lower third of the esophagus. The maximum longitudinal extent of these mucosal changes was 3 cm in length. Mucosa was biopsied with a cold forceps for histology in a targeted manner at intervals of 1 cm in the lower third of the esophagus. One specimen bottle was sent to pathology. Verification of patient identification for the specimen was done. Estimated blood loss was minimal. No gross lesions were noted in the entire examined stomach. One spurting cratered duodenal ulcer with a visible vessel was found in the first portion of the duodenum. The lesion was 12 mm in largest dimension. Area was successfully injected with 5 mL of a 1:10,000 solution of epinephrine for drug delivery. Coagulation for hemostasis using heater probe was successful. Clot removal with lavage was attempted. This was successful and revealed a spurting lesion with a visible vessel. A medium-sized hiatal hernia was present. Impression: - Esophageal mucosal changes consistent with long-segment White's esophagus. Biopsied. - No gross lesions in the stomach. - One spurting duodenal ulcer with a visible vessel. Injected. Treated with a heater probe. Recommendation: - Discharge patient to home. - NPO today. - Continue present medications. Procedure Code(s): --- Professional --- 92344, 59, Esophagogastroduodenoscopy, flexible, transoral; with control of bleeding, any method 45175, 59, Esophagogastroduodenoscopy, flexible, transoral; with directed submucosal injection(s), any substance 08275, Esophagogastroduodenoscopy, flexible, transoral; with biopsy, single or multiple CPT copyright 2017 [employer]. All rights reserved. The codes documented in this report are preliminary and upon geospatial systems integrator review may be revised to meet current compliance requirements. Rod Geronimo DO 05/24/2022 2:07:08 PM This report has been signed electronically. Number of Addenda: 0 Note Initiated On: 05/24/2022 1:17 PM
--- NOTE | 2022-05-24 14:08 | OP.CCLET_ITS ---
05/24/2022 Pasquale Lopez [address] [place] [address] Re : Upper GI endoscopy procedure for Agusto Nam Dear Dr. Lopez This procedure was performed on Tuesday, May 24, 2022. My impressions and recommendations are as follows: Impressions : - Esophageal mucosal changes consistent with long-segment White's esophagus. Biopsied. - No gross lesions in the stomach. - One spurting duodenal ulcer with a visible vessel. Injected. Treated with a heater probe. Recommendations : - Discharge patient to home. - NPO today. - Continue present medications. My findings are described in the full procedure note, which is enclosed. If I can be of further assistance, please feel free to contact me at . Sincerely, Rod Geronimo, 05/24/2022 2:07:08 PM This report has been signed electronically.
[2022-05-24] MEDS: Albuterol 2.5 MG/3 ML VIAL.NEB. INHALATION (14:30)
[2022-05-24 16:18] LABS: Hematocrit 27.9 % (40-54); Hemoglobin 8.8 g/dL (13.0-16.5)
[2022-05-24] MEDS: Ceftriaxone 1 GM/50 ML BAG IV (21:55)
[2022-05-25] VITALS (17 sets, daily range): BP systolic 84–145; BP diastolic 46–98; PULSE 89–115; RESP 13–24; TEMP 36.7–36.9; O2SAT 87–100
[2022-05-25 02:57] LABS: Absolute Lymphocyte Count 2.51 X10^3/uL (0.83-4.51); Absolute Neutrophil Count 8.3 X10^3/uL (2.0-7.7); Basophil# 0.09 X10^3/uL; Basophil% 0.8 % (0-1); Eosinophil# 0.18 X10^3/uL; Eosinophils% 1.5 % (0-5); Hematocrit 29.5 % (40-54); Hemoglobin 9.4 g/dL (13.0-16.5); Lymphocyte # 2.51 X10^3/ul (0.83-4.51); Mean Corp Hgb Conc 31.9 g/dL (32-36); Mean Corpuscular Hgb 32.3 pg (27.0-32.0); Mean Corpuscular Volume 101.4 fL (80-94); Mean Platelet Vol. 10.3 fl (6.2-12.0); Monocyte% 6.7 % (0-10); NRBC Flagged by Analyzer 0 % (0-5); Neutrophil # 8.31 X10^3/uL (2.7-7.7); Neutrophil % 69.4 % (47-70); Platelet Count 209 K/mm3 (150-450); RBC Distribution Width CV 13.1 % (11.6-14.6); Red Blood Count 2.91 M/mm3 (4.6-6.2)
[2022-05-25 03:13] LABS: AST(SGOT) 183 U/L (15-37); Alanine Aminotransfer ALT/SGPT 147 U/L (16-61); Albumin, Serum 2.9 g/dL (3.2-5.0); Alkaline Phosphatase 63 U/L (45-117); Anion Gap 6 (5-15); BUN 16 mg/dL (7-18); Calcium,Total 8.1 mg/dL (8.5-10.1); Chloride 104 mmol/L (98-107); Creatinine, Serum 0.84 mg/dL (0.70-1.30); EST Glomerular Filtration Rate 102 mL/min (>60); Est Glom Filt Rate - Afr Amer 123 mL/min (>60); Estimated Creatinine Clearance 110.81 ml/min; Globulin 2.9 g/dL (2.2-4.2); Glucose 118 mg/dL (74-106); Potassium 4.3 mmol/L (3.5-5.1); Protein, Total 5.8 g/dL (6.4-8.2); Sodium Level 137 mmol/L (136-145)
[2022-05-25] MEDS: 0.9% Normal Saline 1,000 ML 100 ML IV ×3 (03:15→23:25)
[2022-05-25] MEDS: LORazepam 2 MG/ML Syringe IV (09:11)
--- NOTE | 2022-05-25 11:52 | CASEMGMT ---
SW Note SW met with patient and patient's guest and introduced herself and role as [facility] [employer]. SW requested permission to talk to patient with guest present, patient agreed. SW inquired about patient's stay at [facility], resources/services he was receiving as well as interest in any additional services. Patient denied receiving AOD services and denied AOD resources offered. SW inquired about other needs, patient stated he had no other needs at this time. SW remains available if needs arise. Qiana Judd MSW, LEVI
--- NOTE | 2022-05-25 12:43 | PN.HOSP_ITS ---
Subjective Subjective Reports to bowel movements with blood in them overnight but denies any today and reports he is no longer feeling queasy or the pressure in his abdomen and feels much better from that standpoint. Is slightly tired this morning. Denies nausea or vomiting, no abdominal pain at this time, no chest pain or shortness o f breath Objective Data Objective Data Vital Signs: Vital Signs Temp Pulse Resp BP Pulse Ox O2 Del Method O2 Flow Rate 98.2 F 97 16 108/56 L 93 Room Air 1 05/25/22 08:00 05/25/22 10:00 05/25/22 10:00 05/25/22 10:00 05/25/22 10:00 05/25/22 10:00 05/25/22 09:00 Oxygen Flow Rate (L/min) 1 Oxygen Delivery Method Room Air Weight: 113.8 kg Body Mass Index (BMI) 34.9 Intake & Output: Intake and Output for Last 24 Hours 05/23/22 05/24/22 05/25/22 23:59 23:59 23:59 Intake Total 1085 / 1085 2550.45 / 2550.45 1387.75 / 1387.75 Output Total 2100 / 2100 1325 / 1325 Balance 1085 / 1085 450.45 / 450.45 62.75 / 62.75 Lab / Micro Data Result Diagrams: 05/25/22 02:48 05/25/22 02:48 Labs: Laboratory Results - last 24 hr 05/24/22 16:11: Hgb 8.8 L, Hct 27.9 L 05/25/22 02:48: WBC 12.0 H, RBC 2.91 L, Hgb 9.4 L, Hct 29.5 L, MCV 101.4 H, MCH 32.3 H, MCHC 31.9 L, RDW Std Deviation 49.0 H, RDW Coeff of Mignon 13.1, Plt Count 209, MPV 10.3, Immature Gran % (Auto) 0.600, Neut % (Auto) 69.4, Lymph % (Auto) 21.0, [place] % (Auto) 6.7, Eos % (Auto) 1.5, Baso % (Auto) 0.8, Absolute Neuts (auto) 8.3 H, Absolute Lymphs (auto) 2.51, Nucleated RBC % 0 12/24/22 02:48: Sodium 137, Potassium 4.3, Chloride 104, Carbon Dioxide 27.0, Anion Gap 6, BUN 16, Creatinine 0.84, Estim Creat Clear Calc 110.81, Est GFR (MDRD) Af Amer 123, Est GFR (MDRD) Non-Af 102, BUN/Creatinine Ratio 19.0, Glucose 118 H, Calcium 8.1 L, Total Bilirubin 0.50, AST 183 H, ALT 147 H, Alkaline Phosphatase 63, Total Protein 5.8 L, Albumin 2.9 L, Globulin 2.9, Albumin/Globulin Ratio 1.0 Physical Exam Const alert and no apparent distress Constitutional Narrative: Oriented HEENT normocephalic and head/scalp atraumatic Eyes Eyes Narrative: EOM grossly intact, anicteric Neck supple Resp normal respiratory effort and clear to auscultation bilaterally Cardio regular rate and regular rhythm GI soft to palpation, non-tender and non-distended Extremity Extremity Narrative: No edema appreciated Neuro moves all extremities Neuro Narrative: No overt focal deficits appreciated Psych Psych Narrative: Cooperative Assessment & Plan Assessment/Plan (1) Acute upper gastrointestinal bleeding: PLAN: Plan #Acute upper GI bleed due to duodenal ulcer EGD by Dr. Geronimo 05/14 showed spurting duodenal ulcer which was treated and did not note varices Discussed with Dr. Geronimo, DC octreotide and Rocephin, transition PPI to twice daily, diet full liquid for the next 24 hours and Carafate 3 times daily. Hemoglobin is stable Blood pressure improving #History of chronic alcohol use disorder with risk of withdrawal On CIWA, has not required a significant mount of Ativan and it was reported that 2 mg IV was incredibly sedating for him Continue thiamine, folic acid, CIWA, Ativan changed to 1 mg Monitor for DTs #Chronic alcoholic hepatitis Monitor CMP #DVT ppx: SCDs given GI bleed Yasmine Cabezas MD Charges/Coding Visit Charges Inpatient E&M: 73437 Subs Hosp L2
--- NOTE | 2022-05-25 13:40 | CASEMGMT ---
RN EVETTE Face to Face with patient for initial transition planning/care coordination assessment. RN CM introduced self and role at [facility]. Patient sitting in chair, alert and oriented. Patient willing to participate in assessment and is able to answer all questions appropriately. Care providers, pharmacy, and demographics verified. Patient wishes to discharge home, denies need for home health at this time. Patient states he has no further needs or concerns at this time. CM to follow for discharge planning needs that may arise. PCP: Jessica Specialists: none Preferred Pharmacy: [facility] Insurance: MMO Prescription Benefit: yes Living Will/HPOA: none LNOK: significant other Living Arrangements: Patient lives with significant other in a in a 2 story home. Patient states he is independent and able to ambulate stairs. Transportation: self, significant other DME/HHC: Patient denies DME in the home. No previous HHC or SNF. Patient states he smokes 1.25 PPD of cigarettes and drinks 10 vodka drinks per day. Patient denying AOD resources. Disposition Plan: Patient to discharge home with family support and follow-up plans in place. Rossy SAAVEDRA, RN, CM
[2022-05-25] MEDS: Sucralfate 1 GM Tablet PO (15:26)
[2022-05-25] MEDS: 0.9% Saline Lock 10 ML Syringe IV (15:26)
--- NOTE | 2022-05-25 16:42 | NURSING ---
[facility] vitals late, pt just arrived to floor from ICU.
[2022-05-25] MEDS: Pantoprazole Sodium 40 MG Tablet PO (22:06)
[2022-05-26 02:44] VITALS: PULSE 95
[2022-05-26] MEDS: oxyCODONE 5 MG Tablet PO (03:01)
[2022-05-26] MEDS: Acetaminophen 325 MG Tablet 650 MG PO (03:02)
[2022-05-26 04:10] VITALS: BP 131/72; PULSE 102; RESP 16; TEMP 36.8; O2SAT 93
[2022-05-26 05:28] LABS: Absolute Lymphocyte Count 2.06 X10^3/uL (0.83-4.51); Absolute Neutrophil Count 3.8 X10^3/uL (2.0-7.7); Basophil# 0.07 X10^3/uL; Eosinophil# 0.22 X10^3/uL; Eosinophils% 3.3 % (0-5); Hematocrit 24.6 % (40-54); Hemoglobin 7.9 g/dL (13.0-16.5); Lymphocyte # 2.06 X10^3/ul (0.83-4.51); Lymphocyte % 30.5 % (19-41); Mean Corp Hgb Conc 32.1 g/dL (32-36); Mean Corpuscular Hgb 32.2 pg (27.0-32.0); Mean Corpuscular Volume 100.4 fL (80-94); Mean Platelet Vol. 9.7 fl (6.2-12.0); Monocyte# 0.55 X10^3/uL; Monocyte% 8.1 % (0-10); NRBC Flagged by Analyzer 0 % (0-5); Neutrophil # 3.81 X10^3/uL (2.7-7.7); Neutrophil % 56.4 % (47-70); Platelet Count 170 K/mm3 (150-450); RBC Distribution Width CV 12.8 % (11.6-14.6); RBC Distribution Width SD 46.7 fl (35.1-43.9); Red Blood Count 2.45 M/mm3 (4.6-6.2); White Blood Count 6.8 K/mm3 (4.4-11.0)
[2022-05-26 05:55] LABS: AST(SGOT) 154 U/L (15-37); Alanine Aminotransfer ALT/SGPT 140 U/L (16-61); Albumin, Serum 2.7 g/dL (3.2-5.0); Alkaline Phosphatase 60 U/L (45-117); Anion Gap 4 (5-15); BUN 10 mg/dL (7-18); BUN/Creat Ratio 13.4 RATIO (10-20); Calcium,Total 8.1 mg/dL (8.5-10.1); Chloride 103 mmol/L (98-107); Creatinine, Serum 0.75 mg/dL (0.70-1.30); EST Glomerular Filtration Rate 117 mL/min (>60); Est Glom Filt Rate - Afr Amer 141 mL/min (>60); Estimated Creatinine Clearance 124.11 ml/min; Globulin 2.8 g/dL (2.2-4.2); Glucose 107 mg/dL (74-106); Potassium 3.8 mmol/L (3.5-5.1); Protein, Total 5.5 g/dL (6.4-8.2); Sodium Level 137 mmol/L (136-145)
[2022-05-26] MEDS: Sucralfate 1 GM Tablet PO ×2 (06:26→10:54)
[2022-05-26 07:00] VITALS: PULSE 91
[2022-05-26 08:04] VITALS: O2SAT 92
[2022-05-26] MEDS: Thiamine Hydrochloride 200 MG/2 ML Vial (08:55)
[2022-05-26] MEDS: Pantoprazole Sodium 40 MG Tablet PO (08:59)
[2022-05-26] MEDS: 0.9% Normal Saline 1,000 ML 100 ML IV (09:03)
[2022-05-26 10:10] VITALS: BP 118/81; PULSE 115; RESP 18; TEMP 36.6; O2SAT 94
--- NOTE | 2022-05-26 12:00 | PCM.DC.SUM ---
Providers Date of Admission: 05/23/22 Date of Discharge: 05/26/22 Primary Care Physician: Dr. Pasquale Lopez, DO Consultations 05/24/22 01:59 Consult: Gastroenterology Routine Consulting Provider: Rod Geronimo Reason for Consult: ABLA EMERGENT Consult: No MD Notified: Yes Date Notified: 05/23/22 Time Notified: 21:10 Method of Notification: ED Physician Initiated Reason For Visit: ABLA Diagnosis Discharge Diagnosis (1) Acute upper gastrointestinal bleeding: Status: Acute Code(s): K92.2 - Gastrointestinal hemorrhage, unspecified Plan #Acute upper GI bleed due to duodenal ulcer #History of chronic alcohol use disorder with risk of withdrawal #Chronic alcoholic hepatitis Medications at Discharge Home Medications amitriptyline 25 mg tablet 25 mg PO DAILY 08/24/21 amlodipine 5 mg tablet 5 mg PO DAILY 08/24/21 lisinopril 20 mg tablet 20 mg PO BID 08/24/21 sildenafil (pulm.hypertension) 20 mg tablet 20 mg PO BID 08/24/21 ferrous sulfate 325 mg (65 mg iron) tablet 325 mg PO TID #90 tabs 05/26/22 hydrocodone-acetaminophen 5-325mg 5mg-325mg 1 tab PO BID PRN pain 4 days #8 tabs 05/26/22 pantoprazole 40 mg tablet,delayed release 40 mg PO BID 30 days #60 tabs 05/26/22 sucralfate 1 gram tablet 1 g PO TID@0700,1100,1600 30 days #90 tabs 05/26/22 Hospital Course Procedures - (EGD) Summary of Care Provided Minutes Spent on Discharge: 35 Hospital Course: Patient is a 52-year-old male with a history of tobacco use, hypertension, alcohol use who presented to the emergency department 05/23/2022 with hematemesis and hematochezia. He had bright red blood per rectum at home and also had blood in his vomitus. He reportedly drinks 10 drinks per day at home, vodka. The case was discussed with GI in the ED and octreotide and Rocephin as well as Protonix drips were advised. He had an EGD by Dr. Geronimo 05/24 showing spurting duodenal ulcer which was treated and there were no varices noted. After discussion with Dr. Geronimo octreotide and Rocephin were discontinued and PPI was changed to twice daily and he was placed on for liquid diet as well as Carafate 3 times a day, hemoglobin stabilized. He was monitored on CIWA during his stay for concern for alcohol withdrawal, got Ativan one-time and it was very sedating. Was no longer scoring. Tolerated full liquid diet, discussed with Dr. Geronimo and he was agreeable for discharge with a follow-up hemoglobin and iron supplementation. On the day of discharge patient denied any abdominal pain, nausea, bloody bowel movements. He had no further complaints. Instructions provided for patient as below as well as verbally: *Please take this with you to your next doctors appointment* -You will need to follow-up with gastroenterology upon discharge, please call Dr. Geronimo's office ([phone]) upon discharge to schedule your hospital follow-up appointment. -It will be important for you to get blood work (your hemoglobin level) in 3 days.? Please call Dr. Geronimo's office at discharge to obtain this lab order, can also coordinate through primary care physician's office but will be very importantly have this done. ?You will be discharged with a prescription for Protonix 40 mg tablets, you will take these twice daily.? Ultimately this will likely be decreased to once daily, please discuss optimal timing with Dr. Geronimo. ?You will be discharged with a prescription for sucralfate which you will take 3 times a day, you will also be sent with a prescription for iron that you will take 3 times a day.? At times iron can be constipating, if you are unable to have a bowel movement for more than 24 hours recommend scheduling MiraLAX daily which can be obtained [id number]-[id number].? All scripts have been sent to the [facility] on [facility] in [facility] as it is open on -Please do not take meloxicam, ibuprofen, or any other NSAIDs.? There is an ctgn-ffg-vchwwip topical anti-inflammatory, Voltaren gel, the you can obtain at any pharmacy.? Would recommend using this - Given your arthritis pain and not being able to take meloxicam will give several days of pain medication to take sparingly until you can contact your primary care physician's office.? It is important you do not mix this with alcohol -CDC guidelines recommend drinking in moderation which for men is 2 drinks or less at a day. -Please call your primary care provider's office upon discharge to schedule a hospital follow up within 1 week. -For any concerning signs or symptoms please call 911 or proceed to the nearest emergency department Physical Exam Const alert and no apparent distress Constitutional Narrative: Oriented HEENT normocephalic and head/scalp atraumatic Eyes Eyes Narrative: EOM grossly intact, anicteric Neck supple Resp normal respiratory effort and clear to auscultation bilaterally Cardio regular rate and regular rhythm GI soft to palpation, non-tender and non-distended Extremity Extremity Narrative: No edema appreciated Neuro moves all extremities Neuro Narrative: No overt focal deficits appreciated Psych Psych Narrative: Cooperative Weight / BMI Weight Weight: 112.8 kg Body Mass Index (BMI) 34.9 ABG / Lab / Microbiology Data Result Diagrams: 05/26/22 05:10 05/26/22 05:10 Laboratory: Laboratory Results - last 24 hr 05/26/22 05:10: WBC 6.8, RBC 2.45 L, Hgb 7.9 L, Hct 24.6 L, MCV 100.4 H, MCH 32.2 H, MCHC 32.1, RDW Std Deviation 46.7 H, RDW Coeff of Mignon 12.8, Plt Count 170, MPV 9.7, Immature Gran % (Auto) 0.700, Neut % (Auto) 56.4, Lymph % (Auto) 30.5, [place] % (Auto) 8.1, Eos % (Auto) 3.3, Baso % (Auto) 1.0, Absolute Neuts (auto) 3.8, Absolute Lymphs (auto) 2.06, Nucleated RBC % 0 05/26/22 05:10: Sodium 137, Potassium 3.8, Chloride 103, Carbon Dioxide 30.0, Anion Gap 4 L, BUN 10, Creatinine 0.75, Estim Creat Clear Calc 124.11, Est GFR (MDRD) Af Amer 141, Est GFR (MDRD) Non-Af 117, BUN/Creatinine Ratio 13.4, Glucose 107 H, Calcium 8.1 L, Total Bilirubin 0.40, AST 154 H, ALT 140 H, Alkaline Phosphatase 60, Total Protein 5.5 L, Albumin 2.7 L, Globulin 2.8, Albumin/Globulin Ratio 1.0 D/C Instructions Discharge Diet: - (Advance as tolerated) Meaningful Use Info Meaningful Use Diagnoses (Choose all that apply): None applicable Discharge Plan Admission Admit Date/Time: 05/23/22 21:05 Primary Reason for Your Visit: Blood in stool Attending Provider: Yasmine Cabezas Primary Care Provider: Pasquale Lopez Consulting Providers: Rod Geronimo ; David Julio ; Dannie Pennington Instructions Patient Instructions: ED Upper GI Bleeding (Stable) Additional Instructions / Restrictions: *Please take this with you to your next doctors appointment* -You will need to follow-up with gastroenterology upon discharge, please call Dr. Geronimo's office ([phone]) upon discharge to schedule your hospital follow-up appointment. -It will be important for you to get blood work (your hemoglobin level) in [address] Geronimo's office at discharge to obtain this lab order, can also coordinate through primary care physician's office but will be very importantly have this done. ?You will be discharged with a prescription for Protonix 40 mg tablets, you will take these twice daily. Ultimately this will likely be decreased to once daily, please discuss optimal timing with Dr. Geronimo. ?You will be discharged with a prescription for sucralfate which you will take 3 times a day, you will also be sent with a prescription for iron that you will take 3 times a day. At times iron can be constipating, if you are unable to have a bowel movement for more than 24 hours recommend scheduling MiraLAX daily which can be obtained jzdy-wch-osfwxbh. All scripts have been sent to the [facility] on [facility] in [facility] as it is open on -Please do not take meloxicam, ibuprofen, or any other NSAIDs. There is an mjws-ogj-prlyesc topical anti-inflammatory, Voltaren gel, the you can obtain at any pharmacy. Would recommend using this - Given your arthritis pain and not being able to take meloxicam will give several days of pain medication to take sparingly until you can contact your primary care physician's office. It is important you do not mix this with alcohol -CDC guidelines recommend drinking in moderation which for men is 2 drinks or less at a day. -Please call your primary care provider's office upon discharge to schedule a hospital follow up within 1 week. -For any concerning signs or symptoms please call 911 or proceed to the nearest emergency department Discharge Orders/Prescriptions Prescriptions: New sucralfate 1 gram Tablet 1 g PO TID@0700,1100,1600 30 Days Qty: 90 0RF pantoprazole 40 mg Tablet,Delayed Release (Dr/Ec) 40 mg PO BID 30 Days Qty: 60 0RF ferrous sulfate 325 mg (65 mg iron) tablet 325 mg PO TID Qty: 90 0RF hydrocodone-acetaminophen 5-325 mg tablet 1 tab PO BID PRN (Reason: pain) 4 Days Qty: 8 0RF Continued amitriptyline 25 mg tablet 25 mg PO DAILY amlodipine 5 mg tablet 5 mg PO DAILY lisinopril 20 mg tablet 20 mg PO BID sildenafil (pulm.hypertension) 20 mg tablet 20 mg PO BID Rx Instructions: administer doses at least 4-6 hours apart Discontinued celecoxib [Celebrex] 200 mg capsule 200 mg PO DAILY meloxicam 15 mg tablet 15 mg PO DAILY Referrals / Follow Up: Pasquale Lopze DO [Primary Care Provider] - Within 1 Week FriendRod DO [Med Staff - Active Staff] - Within 2 Weeks (You need blood work early in the week, please call the office to obtain this order on Friday and to schedule your hospital follow-up appointment) Disposition Disposition (needs filled in before D/C Order can be placed): Home, Self Care Charges/Coding Visit Charges Inpatient E&M: 66702 Disch Hosp
[2022-05-26 13:24] VITALS: BP 118/81; PULSE 115; RESP 18; TEMP 36.6; O2SAT 94
== END 2022-05-26 13:49 | disposition home or self-care (01) | DRG 378 ==
LOC: ED 20:50 → ICU 05-24 00:09 → PCU 05-26 13:15
PROVIDERS: Internal Medicine; Internal Medicine Gastroenterology; Admitting Provider Hospitalist; Emergency Provider Emergency Medicine; PCP Family Medicine; Visit Provider Internal Medicine
PROC: 0DJ08ZZ Inspection of Upper Intestinal Tract, Via Natural or Artificial Opening Endoscopic (ICD-10-PCS; CPT 43235; principal; 2022-05-24 13:10)
DX: K26.4 Chronic or unspecified duodenal ulcer with hemorrhage (principal); E87.1 Hypo-osmolality and hyponatremia; K70.10 Alcoholic hepatitis without ascites; J44.9 Chronic obstructive pulmonary disease, unspecified; F10.20 Alcohol dependence, uncomplicated; F17.210 Nicotine dependence, cigarettes, uncomplicated; S70.11XA Contusion of right thigh, initial encounter; S70.12XA Contusion of left thigh, initial encounter; I10 Essential (primary) hypertension; K22.70 Barrett's esophagus without dysplasia; S80.01XA Contusion of right knee, initial encounter; K92.0 Hematemesis; Z79.899 Other long term (current) drug therapy; X58.XXXA Exposure to other specified factors, initial encounter
CPT/HCPCS: 36415; 80048; 80053; 80076; 85014; 85018; 85025; 85384; 85610; 85730; 86850; 86900; 86901; 94640; 94762; 99285; J7030; J7050; J7120; A4216; J2405; J3490

== ENCOUNTER → 2022-05-31 | Outpatient (CLI) | payer OTHER, SELFPAY ==
--- NOTE | 2022-05-31 10:30 | RAD_ITS ---
INDICATION: Right ankle pain for 3 weeks, no known injury EXAMINATION/TECHNIQUE: X-RAY - RIGHT XR Ankle Min 3 Views 3 VIEWS COMPARISON: None. FINDINGS: SOFT TISSUES: No soft tissue swelling or gas. No radiopaque foreign body. BONES/JOINTS: No acute fracture. Joint spaces anatomically maintained. No sclerotic or destructive changes observed. RAD/Ankle min 3 Views IMPRESSION: Unremarkable study. Electronically Signed: Carlo Allen MD at 16:24 EST ,
[2022-05-31 11:04] LABS: Absolute Lymphocyte Count 2.74 X10^3/uL (0.83-4.51); Absolute Neutrophil Count 4.7 X10^3/uL (2.0-7.7); Basophil% 1.1 % (0-1); Eosinophil# 0.24 X10^3/uL; Eosinophils% 2.7 % (0-5); Hematocrit 32.4 % (40-54); Hemoglobin 10.2 g/dL (13.0-16.5); Lymphocyte # 2.74 X10^3/ul (0.83-4.51); Lymphocyte % 31.3 % (19-41); Mean Corp Hgb Conc 31.5 g/dL (32-36); Mean Corpuscular Hgb 31.7 pg (27.0-32.0); Mean Corpuscular Volume 100.6 fL (80-94); Mean Platelet Vol. 9.9 fl (6.2-12.0); Monocyte# 0.81 X10^3/uL; Monocyte% 9.2 % (0-10); NRBC Flagged by Analyzer 0.3 % (0-5); Neutrophil # 4.73 X10^3/uL (2.7-7.7); Neutrophil % 54.1 % (47-70); Platelet Count 375 K/mm3 (150-450); RBC Distribution Width CV 13.2 % (11.6-14.6); RBC Distribution Width SD 48.3 fl (35.1-43.9); Red Blood Count 3.22 M/mm3 (4.6-6.2); White Blood Count 8.8 K/mm3 (4.4-11.0)
== END | disposition home or self-care (01) ==
PROVIDERS: PCP Family Medicine; Referring Provider Family Medicine; Visit Provider Family Medicine
DX: M25.571 Pain in right ankle and joints of right foot (principal)
CPT/HCPCS: 36415; 73610; 85025

== ENCOUNTER → 2022-06-05 | Outpatient (CLI) | payer OTHER, SELFPAY ==
[2022-06-05 13:00] LABS: Uric Acid 7.6 mg/dL (3.5-7.2)
== END | disposition home or self-care (01) ==
LOC: BFHLAB 09:17
PROVIDERS: PCP Family Medicine; Visit Provider Family Medicine
DX: D64.9 Anemia, unspecified (principal); M25.571 Pain in right ankle and joints of right foot
CPT/HCPCS: 36415; 84550

== ENCOUNTER → 2022-07-08 | Outpatient (CLI) | payer OTHER, SELFPAY ==
[2022-07-08 17:47] LABS: Absolute Lymphocyte Count 2.34 X10^3/uL (0.83-4.51); Absolute Neutrophil Count 5.6 X10^3/uL (2.0-7.7); Basophil# 0.08 X10^3/uL; Basophil% 0.9 % (0-1); Eosinophil# 0.08 X10^3/uL; Eosinophils% 0.9 % (0-5); Hematocrit 49.4 % (40-54); Lymphocyte # 2.34 X10^3/ul (0.83-4.51); Lymphocyte % 26.4 % (19-41); Mean Corp Hgb Conc 32.4 g/dL (32-36); Mean Corpuscular Hgb 30.5 pg (27.0-32.0); Mean Corpuscular Volume 94.3 fL (80-94); Monocyte# 0.77 X10^3/uL; Monocyte% 8.7 % (0-10); NRBC Flagged by Analyzer 0 % (0-5); Neutrophil # 5.57 X10^3/uL (2.7-7.7); Neutrophil % 62.9 % (47-70); Platelet Count 211 K/mm3 (150-450); RBC Distribution Width CV 13.1 % (11.6-14.6); RBC Distribution Width SD 45.5 fl (35.1-43.9); Red Blood Count 5.24 M/mm3 (4.6-6.2); White Blood Count 8.9 K/mm3 (4.4-11.0)
[2022-07-08 18:00] LABS: AST(SGOT) 62 U/L (15-37); Alanine Aminotransfer ALT/SGPT 70 U/L (16-61); Albumin, Serum 3.9 g/dL (3.2-5.0); Alkaline Phosphatase 107 U/L (45-117); Anion Gap 9 (5-15); BUN 10 mg/dL (7-18); BUN/Creat Ratio 11.2 RATIO (10-20); Calcium,Total 9.3 mg/dL (8.5-10.1); Chloride 99 mmol/L (98-107); Creatinine, Serum 0.89 mg/dL (0.70-1.30); EST Glomerular Filtration Rate 96 mL/min (>60); Est Glom Filt Rate - Afr Amer 116 mL/min (>60); Glucose 137 mg/dL (74-106); Potassium 3.6 mmol/L (3.5-5.1); Protein, Total 7.9 g/dL (6.4-8.2); Sodium Level 136 mmol/L (136-145); Uric Acid 5.7 mg/dL (3.5-7.2)
[2022-07-08 22:10] LABS: Xtra Tube EP Lab EXTRA TUBE
== END | disposition home or self-care (01) ==
LOC: BFHLAB 14:06
PROVIDERS: PCP Family Medicine; Visit Provider Family Medicine
DX: I10 Essential (primary) hypertension (principal); M10.9 Gout, unspecified; Z51.81 Encounter for therapeutic drug level monitoring
CPT/HCPCS: 36415; 80053; 84550; 85025

== ENCOUNTER 2022-08-27 13:40 | Day surgery (SDC) | payer OTHER, SELFPAY ==
[2022-08-27] VITALS (9 sets, daily range): BP systolic 109–144; BP diastolic 76–104; PULSE 83–95; RESP 16–18; TEMP 36.6–37.3; O2SAT 92–97; BMI 36.9
[2022-08-27] MEDS: Lactated Ringers 1,000 ML 15 ML IV (13:59)
--- NOTE | 2022-08-27 14:45 | EGD_PTH ---
PATIENT: ANKUR HUBBARD LOC: EN U#:[id number] AGE/SX: 52/M ROOM: RE08/27/[address]: Dr. Rod Geronimo DO : 1970 BED: DIS: 08/27/2022 SPEC #: [id number] RECD: 08/27/22 16:42 STATUS: AMELIA ANA ROSA #: [id number] JJ: 08/27/22 14:[address]: Rod Geronimo DEPT: SURGICAL PATHOLOGY RECD BY: Marissa Santiago ENTERED: 08/28/22 09:23 SP TYPE: EGD BIOPSY JOHNNIE DR: Dr. Pasquale Lopez DO Tissues: A - Esophagus, NOS B - Esophagus, NOS Procedures: Special Stain Group II Surgery Specimen Level IV Alcian Blue/PAS (control) HEADER OPERATION: EGD ([facility]) with biopsies PRE-OP DIAGNOSIS: Gastric ulcers TISSUE SUBMITTED: A ? White?s biopsy, B ? Esophageal nodule biopsy MICROSCOPIC DIAGNOSIS A. 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 Rare cells with intestinal metaplasia (goblet cell metaplasia). Negative for dysplasia. See comment. B. Esophageal nodule, biopsy: A fragment of gastroesophageal mucosa with acute and chronic inflammation. Rare cells with intestinal metaplasia (goblet cell metaplasia). Negative for dysplasia. See comment. SJ:rg 08/29/2022 COMMENT A. The specimen predominantly consists of gastric mucosa. Alcian blue/PAS stain with matched control is used in the evaluation of the specimen. B. Alcian blue/PAS stain with matched control is used in the evaluation of the specimen. This case has been reviewed in consultation with Dr. Browne who concurs with the above diagnosis. MICROSCOPIC DESCRIPTION Slides are reviewed. GROSS DESCRIPTION A - Received in fixative is one container labeled with the patient's name and designated White's esophagus. The specimen consists of multiple irregular fragments of light olivo soft tissue that in aggregate measure 0.6 x 0.5 x 0.1 cm. The specimen is totally submitted in one cassette. B - Received in fixative is one container labeled with the patient's name and designated esophageal nodule. The specimen consists of one irregular fragment of light olivo soft tissue that measures 0.3 x 0.2 x 0.1 cm. The specimen is totally submitted in one cassette. / AM:brigido 08/28/2022 TC:3 CPT: 66714 x2, 27857 x2
--- NOTE | 2022-08-27 14:58 | PCM.HP.BLA ---
History and Physical Date of Admission: 08/27/22 ?52 M who presents to the office today for Follow up. Agusto established with this clinic 09.19.21 with referral from PCP. Diarrhea with loose, water stools of increased frequency and emesis (smokers cough contributes as a trigger) has been an issue for several years. Smoker 1 PPD and consumes 3-4 alcoholic drinks/night. Biochemical workup CMP,?CBC,?coagulation,?celiac, gastrin,?folates, Vit D1,25, GAME, TSHwithout pertinent abnormality. ESR H21, CRP H11.10, ferritin H1275, Vit B12 1248 LFT AST H242/ALT H129/AP 116 Stool calprotectin, lactoferrin, O/P, giardia, C.difficile, EP WNL. Start colestipol US RUQ . hepatomegaly 20.5cm with fatty infiltration. Elastography?? not performed. [facility] hospitalization 05.23.22-05.26.22. ED presentation with BRBPR and hypotension and was admitted following discussion with GI. Reported to hospital he drinks closer to 10 alcoholic drinks per night. ?EGD 05.24.22?Long-segment White?s; one spurting duodenal ulcer, heater probe/injection. ?Start PPI and sucralfate. MELD? Fib4??? AST/ALT ratio 09.19.21 6 ??? 5.30??? 1.876 indicative of cirrhosis 05.23.22 8? 2.10??? 0.854 WNL Feels he is doing well overall. Denies symptoms that require attention/improvement today. ROS Const Constitutional: No fatigue ENT ENT: No difficulty swallowing Resp Respiratory: Positive for cough and wheezing Cardio Cardiology: Positive for shortness of breath Gastro GI: Positive for constipation and diarrhea; No abdominal pain, belching, bloating, change in bowel habits, change in stool character, coffee ground emesis, cramping, heartburn, difficulty swallowing, feeling full early, excessive flatus, incontinent of stools, Vomiting blood/hematemesis, Blood in stool, loose stools, Black,tarry stools, nausea/dyspepsia, pain with swallowing, vomiting or other Musc Musculoskeletal: Positive for joint pain, back pain, stiffness, tingling, Arthritis and restless legs Skin Skin: No yellowing of the eye or itchy eyes Neuro Neurology: Positive for unsteady gait/balance, tingling and restless legs Psych Psychiatric: No anxiety and No depression Endo Endocrine: No fatigue Aller/Imm Allergy/Immunologic: Positive for wheezing; No itchy eyes Dimitri/Lymp Hematologic/Lymphatic: No easy bleeding or easy bruising Exam Const General: cooperative, no acute distress, well developed and well groomed GI Inspection: distended Skin General: no jaundice Extrem General: normal to inspection Psych Mood: congruent mood Affect: normal affect Quality Reporting Tobacco Screening ([facility] 138) Smoking Status: Current every day smoker Assessment and Plan Assessment and Plan (1) Fatty liver: ?Status:?Chronic ?Plan: Alcoholic fatty liver disease.? He got an ultrasound that she was hepatomegaly without splenomegaly.? The liver span is 22 cm.? He is still drinking alcohol, but he has cut down significantly after having an acute GI bleed in the hospital.? We discussed reducing alcohol history to decrease cirrhosis.? We will have a FibroScan to determine the status of his liver.? We will also repeat his liver enzymes (2) Alcohol use disorder: ?Status:?Chronic (3) Gastric ulcer: ?Status:?Acute ?Plan: Patient had a GI bleed from NSAIDs that required the usage of, electrocautery, epinephrine and fibrospray.? He will continue sulfur fate and PPI therapy and we will repeat his upper endoscopy in approximately 2 to 3 months. ? ? ? Medications: Refilled sucralfate 1 g? PO TID@0700,1100,1600 30 days 90 tabs 3RF ? ? pantoprazole 40 mg? PO BID 30 days 60 tabs 3RF ? ? I have examined the patient and the H&P has been reviewed. There are no clinical changes since date of exam.
--- NOTE | 2022-08-27 15:37 | OP.EGD_ITS ---
Patient Name: Agusto Nam Procedure Date: 08/27/2022 3:00 PM Date of : 1970 Age: 52 Procedure: Upper GI endoscopy Indications: Follow-up of White's esophagus, Peptic ulcer Providers: Rod Geronimo DO Referring MD: Rod Geronimo DO Medicines: Monitored Anesthesia Care Patient Profile: This is a 52 year old male. Refer to note in patient chart for documentation of history and physical. Patient has symptoms of chronic heartburn. Complications: No immediate complications. Procedure: Pre-Anesthesia Assessment: - Prior to the procedure, a History and Physical was performed, and patient medications and allergies were reviewed. The risks and benefits of the procedure and the sedation options and risks were discussed with the patient. All questions were answered and informed consent was obtained. Patient identification and proposed procedure were verified by the physician. Mental Status Examination: normal. Prophylactic Antibiotics: The patient does not require prophylactic antibiotics. Prior Anticoagulants: The patient has taken no previous anticoagulant or antiplatelet agents. ASA Grade Assessment: III - A patient with severe systemic disease. After reviewing the risks and benefits, the patient was deemed in satisfactory condition to undergo the procedure. The anesthesia plan was to use monitored anesthesia care (MAC). Immediately prior to administration of medications, the patient was re-assessed for adequacy to receive sedatives. The heart rate, respiratory rate, oxygen saturations, blood pressure, adequacy of pulmonary ventilation, and response to care were monitored throughout the procedure. The physical status of the patient was re-assessed after the procedure. After obtaining informed consent, the endoscope was passed under direct vision. Throughout the procedure, the patient's blood pressure, pulse, and oxygen saturations were monitored continuously. The gastroscope was introduced through the mouth, and advanced to the second part of duodenum. The upper GI endoscopy was accomplished without difficulty. The patient tolerated the procedure well. Scope In: 3:13:37 PM Scope Out: 3:17:23 PM Total Procedure Duration Time 0 hours 3 minutes 46 seconds Findings: The esophagus and gastroesophageal junction were examined with white light and narrow band imaging (NBI) from a forward view and retroflexed position. There were esophageal mucosal changes secondary to established long-segment White's disease. These changes involved the mucosa extending to the Z-line. Broad[place]-colored mucosa was present. The maximum longitudinal extent of these esophageal mucosal changes was 8 cm in length. Mucosa was biopsied with a cold forceps for histology in a targeted manner at intervals of 1 cm in the lower third of the esophagus. A total of 2 specimen bottles were sent to pathology. Verification of patient identification for the specimen was done. Estimated blood loss was minimal. A medium-sized hiatal hernia was present. Patchy mildly erythematous mucosa without bleeding was found in the gastric body. No gross lesions were noted in the duodenal bulb. 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 Biopsied. - Medium-sized hiatal hernia. - Erythematous mucosa in the gastric body. - No gross lesions in the duodenal bulb. Recommendation: - Discharge patient to home. - Resume previous diet. - Continue present medications. - Use Protonix (pantoprazole) 40 mg PO BID. Procedure Code(s): --- Professional --- 14906, Esophagogastroduodenoscopy, flexible, transoral; with biopsy, single or multiple CPT copyright 2017 [employer]. All rights reserved. The codes documented in this report are preliminary and upon remote inpatient coder review may be revised to meet current compliance requirements. Rod Geronimo DO 08/27/2022 3:36:46 PM This report has been signed electronically. Number of Addenda: 0 Note Initiated On: 08/27/2022 3:00 PM
--- NOTE | 2022-08-27 15:38 | OP.CCLET_ITS ---
08/27/2022 Pasquale Lopez [address] [place] [address] Re : Upper GI endoscopy procedure for Agusto Nam Dear Dr. Lopez This procedure was performed on Saturday, August 27, 2022. My impressions and recommendations are as follows: Impressions : - Esophageal mucosal changes secondary to established long-segment White's disease. Biopsied. - Medium-sized hiatal hernia. - Erythematous mucosa in the gastric body. - No gross lesions in the duodenal bulb. Recommendations : - Discharge patient to home. - Resume previous diet. - Continue present medications. - Use Protonix (pantoprazole) 40 mg PO BID. My findings are described in the full procedure note, which is enclosed. If I can be of further assistance, please feel free to contact me at . Sincerely, Rod Geronimo, 08/27/2022 3:36:46 PM This report has been signed electronically.
[2022-08-27] MEDS: Ipratropium/Albuterol Sulfate 3 ML AMPUL.NEB INHALATION (15:58)
== END 2022-08-27 16:47 | disposition home or self-care (01) ==
LOC: EN 13:42 → AC 13:42
PROVIDERS: PCP Family Medicine; Referring Provider Internal Medicine Gastroenterology; Visit Provider Internal Medicine Gastroenterology
PROC: 0DJ08ZZ Inspection of Upper Intestinal Tract, Via Natural or Artificial Opening Endoscopic (ICD-10-PCS; CPT 43235; principal; 2022-08-27 14:40)
DX: K22.70 Barrett's esophagus without dysplasia (principal); K70.9 Alcoholic liver disease, unspecified; K44.9 Diaphragmatic hernia without obstruction or gangrene; K31.89 Other diseases of stomach and duodenum; F17.200 Nicotine dependence, unspecified, uncomplicated; K21.9 Gastro-esophageal reflux disease without esophagitis; I10 Essential (primary) hypertension; E61.1 Iron deficiency; Z79.899 Other long term (current) drug therapy
CPT/HCPCS: 43239; 88305; 88313; 94640; J7120; J2405

== ENCOUNTER → 2023-04-18 | Outpatient (CLI) | payer OTHER, SELFPAY ==
[2023-04-18 19:01] LABS: Hemoglobin A1c 5.8 % (3.8-5.6)
[2023-04-18 19:15] LABS: AST(SGOT) 205 U/L (15-37); Alanine Aminotransfer ALT/SGPT 156 U/L (16-61); Albumin, Serum 3.8 g/dL (3.2-5.0); Alkaline Phosphatase 116 U/L (45-117); Anion Gap 9 (5-15); BUN 12 mg/dL (7-18); BUN/Creat Ratio 14.7 RATIO (10-20); Calcium,Total 8.7 mg/dL (8.5-10.1); Chloride 100 mmol/L (98-107); Cholesterol 180 mg/dL (200); Creatinine, Serum 0.82 mg/dL (0.70-1.30); EST Glomerular Filtration Rate 105 mL/min (>60); Est Glom Filt Rate - Afr Amer 127 mL/min (>60); Globulin 3.9 g/dL (2.2-4.2); Glucose 111 mg/dL (74-106); High Density Lipoprotein 41 mg/dL; PSA,Total - Annual Screen 0.63 ng/mL (0.00-4.00); Potassium 3.8 mmol/L (3.5-5.1); Protein, Total 7.7 g/dL (6.4-8.2); Sodium Level 135 mmol/L (136-145); Triglycerides 148 mg/dL; Very Low Density Lipoprotein 30 mg/dL (5-40)
== END | disposition home or self-care (01) ==
LOC: BFHLAB 15:21
PROVIDERS: PCP Family Medicine; Visit Provider Family Medicine
DX: I10 Essential (primary) hypertension (principal); R73.01 Impaired fasting glucose; Z12.5 Encounter for screening for malignant neoplasm of prostate
CPT/HCPCS: 36415; 80053; 80061; 83036; 84153; G0103

== ENCOUNTER 2023-04-28 05:23 | Day surgery (SDC) | payer OTHER, SELFPAY ==
[2023-04-28] VITALS (7 sets, daily range): BP systolic 86–151; BP diastolic 51–96; PULSE 99–108; RESP 16–189; TEMP 36.7–37.2; O2SAT 89–95; BMI 37.5
[2023-04-28] MEDS: Lactated Ringers 1,000 ML 15 ML IV (05:55)
--- NOTE | 2023-04-28 06:25 | HP.PCM_ITS ---
History and Physical Date of Admission: 04/28/23 GI bleed Details: ANKUR HUBBARD, is a 53 M who presents to the office today for follow up. *BGI established 09.19.21 with referral from PCP. Diarrhea with loose, water stools of increased frequency and emesis (smokers cough contributes as a trigger) has been an issue for several years. Smoker 1 PPD and consumes 3-4 alcoholic drinks/night.?Start colestipol?Biochemical?CMP,?CBC,?coagulation,?celiac, gastrin,?folates, Vit D1,25, GAME, TSH?without pertinent abnormality.? ESR H21, CRP H11.10, ferritin H1275, Vit B12 1248? LFT AST H242/ALT H129/AP 116? Stool calprotectin, lactoferrin, O/P, giardia, C.difficile, EP WNL.?US RUQ 09.26.21?hepatomegaly 20.5cm with fatty infiltration.? ? [facility] hospitalization 05.23.22-05.26.22. ED presentation with BRBPR and hypotension and was admitted following discussion with GI. Reported to hospital he drinks closer to 10 alcoholic drinks per night.?EGD 05.24.22?Long-segment White?s; one spurting duodenal ulcer, heater probe/injection.?Start PPI and sucralfate.? ? OV 06.12.22 feels he is doing well without symptoms that required improvement.? Fatty liver, elastography. Alcohol use disorder. Gastric ulcer, continue sucralfate and PPI. Repeat EGD.?EGD 08.27.22?changes consistent with long-segment White?s, metaplasia+, dysplasia-; medium hiatal hernia; erythematous gastric body.?PPI? OV 09.05.22 Feels he is doing well without symptoms requiring attention today.? ? Fib4? AST/ALT ratio? 09.19.21 5.30? 1.876 indicative of cirrhosis? 05.23.22 2.10? 0.854 WNL? OV 10.9.23 Reports doing well since last visit. No complaints. ? > ROS Const Constitutional: No fatigue ENT ENT: No difficulty swallowing Cardio Cardiology: Positive for leg pain with exertion Gastro GI: No abdominal pain, belching, bloating, change in bowel habits, change in stool character, coffee ground emesis, constipation, cramping, diarrhea, heartburn, difficulty swallowing, feeling full early, excessive flatus, incontinent of stools, Vomiting blood/hematemesis, Blood in stool, loose stools, Black,tarry stools, nausea/dyspepsia, pain with swallowing, vomiting or other Musc Musculoskeletal: Positive for joint pain, back pain, numbness, stiffness, tingling, Arthritis and leg pain with exertion Skin Skin: No yellowing of the eye or itchy eyes Neuro Neurology: Positive for numbness and tingling Psych Psychiatric: No anxiety and No depression Endo Endocrine: No fatigue Aller/Imm Allergy/Immunologic: No itchy eyes Dimitri/Lymp Hematologic/Lymphatic: Positive for easy bruising; No easy bleeding Exam Const General: cooperative, no acute distress, well developed and well groomed GI Inspection: distended Skin General: no jaundice Extrem General: normal to inspection Psych Mood: congruent mood Affect: normal affect Quality Reporting Tobacco Screening ([facility] 138) Smoking Status: Current every day smoker Assessment and Plan Assessment and Plan (1) White esophagus: Status: Chronic Qualifiers: White's esophagus type: without dysplasia Qualified Code(s): K22.70 - White's esophagus without dysplasia Plan: Repeat his upper endoscopy in one year and continue PPI therapy. (2) Fatty liver: Status: Chronic Plan: Alcoholic fatty liver disease. He got an ultrasound that she was hepatomegaly without splenomegaly. The liver span is 22 cm. He is still drinking alcohol, but he has cut down significantly after having an acute GI bleed in the hospital. We discussed reducing alcohol history to decrease cirrhosis. We will have a FibroScan to determine the status of his liver. We will also repeat his liver enzymes (3) Gastric ulcer: Status: Chronic Qualifiers: Gastric ulcer chronicity: acute Gastric ulcer complication status: with hemorrhage Qualified Code(s): K25.0 - Acute gastric ulcer with hemorrhage Plan: Patient had a GI bleed from NSAIDs that required the usage of, electrocautery, epinephrine and fibrospray. He will continue sulfur fate and PPI therapy and we will repeat his upper endoscopy in approximately 6 months. (4) Alcohol use disorder: Status: Chronic (5) Screening for colon cancer: Status: Acute Plan: He has never had a colonoscopy in the past. He does not have any family history of colon cancer or colon polyps. He needs undergo screening colonoscopy. He was explained alternatives, risk, benefits including and not withstanding bleeding, infection, sepsis, perforation, need for emergent surgery . He will have an ASA of 3. I have examined the patient and the H&P has been reviewed. There are no clinical changes since date of exam.
--- NOTE | 2023-04-28 06:57 | OP.CCLET_ITS ---
04/28/2023 Pasquale Lopez [address] [place] [address] Re : Colonoscopy procedure for Agusto Nam Dear Dr. Lopez This procedure was performed on Friday, April 28, 2023. My impressions and recommendations are as follows: Impressions : - Diverticulosis in the recto-sigmoid colon. - No specimens collected. Recommendations : - Discharge patient to home. - Resume previous diet. - Continue present medications. - Repeat colonoscopy in 10 years for screening purposes. My findings are described in the full procedure note, which is enclosed. If I can be of further assistance, please feel free to contact me at . Sincerely, Rod Geronimo, 04/28/2023 6:56:25 AM This report has been signed electronically.
--- NOTE | 2023-04-28 06:57 | OP.COLON_ITS ---
Patient Name: Agusto Nam Procedure Date: 04/28/2023 6:37 AM Date of : 1970 Age: 53 Procedure: Colonoscopy Indications: Screening for colorectal malignant neoplasm Providers: Rod Geronimo DO Medicines: Monitored Anesthesia Care Patient Profile: This is a 53 year old male. Refer to note in patient chart for documentation of history and physical. Last Colonoscopy: none. The patient's first colonoscopy is today. Complications: No immediate complications. Procedure: Pre-Anesthesia Assessment: - Prior to the procedure, a History and Physical was performed, and patient medications and allergies were reviewed. The patient is competent. The risks and benefits of the procedure and the sedation options and risks were discussed with the patient. All questions were answered and informed consent was obtained. Patient identification and proposed procedure were verified by the physician. Mental Status Examination: normal. Prophylactic Antibiotics: The patient does not require prophylactic antibiotics. Prior Anticoagulants: The patient has taken no anticoagulant or antiplatelet agents. ASA Grade Assessment: II - A patient with mild systemic disease. After reviewing the risks and benefits, the patient was deemed in satisfactory condition to undergo the procedure. The anesthesia plan was to use monitored anesthesia care (MAC). Immediately prior to administration of medications, the patient was re-assessed for adequacy to receive sedatives. The heart rate, respiratory rate, oxygen saturations, blood pressure, adequacy of pulmonary ventilation, and response to care were monitored throughout the procedure. The physical status of the patient was re-assessed after the procedure. After I obtained informed consent, the scope was passed under direct vision. Throughout the procedure, the patient's blood pressure, pulse, and oxygen saturations were monitored continuously. The Colonoscope was introduced through the anus and advanced to the cecum, identified by appendiceal orifice and ileocecal valve. The colonoscopy was performed without difficulty. The patient tolerated the procedure well. The quality of the bowel preparation was adequate. The ileocecal valve, appendiceal orifice, and rectum were photographed. Scope In: 6:44:21 AM Scope Withdrawal Time 0 hours 6 minutes 6 seconds Scope Out: 6:51:28 AM Total Procedure Duration Time 0 hours 7 minutes 7 seconds Findings: The perianal and digital rectal examinations were normal. A few small-mouthed diverticula were found in the recto-sigmoid colon. No other significant abnormalities were identified in a careful examination of the remainder of the colon. Impression: - Diverticulosis in the recto-sigmoid colon. - No specimens collected. Recommendation: - Discharge patient to home. - Resume previous diet. - Continue present medications. - Repeat colonoscopy in 10 years for screening purposes. Procedure Code(s): --- Professional --- G0121, Colorectal cancer screening; colonoscopy on individual not meeting criteria for high risk CPT copyright 2021 [employer]. All rights reserved. The codes documented in this report are preliminary and upon cook helper dessert review may be revised to meet current compliance requirements. Rod Geronimo DO 04/28/2023 6:56:25 AM This report has been signed electronically. Number of Addenda: 0 Note Initiated On: 04/28/2023 6:37 AM
== END 2023-04-28 07:35 | disposition home or self-care (01) ==
LOC: EN 05:23 → AC 05:24
PROVIDERS: PCP Family Medicine; Referring Provider Family Medicine; Visit Provider Internal Medicine Gastroenterology
PROC: 0DJD8ZZ Inspection of Lower Intestinal Tract, Via Natural or Artificial Opening Endoscopic (ICD-10-PCS; CPT 45378; principal; 2023-04-28 06:25)
DX: Z12.11 Encounter for screening for malignant neoplasm of colon (principal); K22.70 Barrett's esophagus without dysplasia; K57.30 Diverticulosis of large intestine without perforation or abscess without bleeding; F17.200 Nicotine dependence, unspecified, uncomplicated; K70.0 Alcoholic fatty liver; F10.90 Alcohol use, unspecified, uncomplicated; K21.9 Gastro-esophageal reflux disease without esophagitis; I10 Essential (primary) hypertension; E61.1 Iron deficiency; Z79.899 Other long term (current) drug therapy
CPT/HCPCS: G0121; 94640; J7120; J2405

== ENCOUNTER → 2024-02-28 | Outpatient (CLI) | payer OTHER, SELFPAY ==
--- NOTE | 2024-02-28 10:44 | RAD_ITS ---
STUDY: X-RAY - LEFT KNEE REASON FOR EXAM: Male, 54 years old. PAIN TECHNIQUE: 4 view(s) of the knee. COMPARISON: None. FINDINGS: Normal visualized distal femur. Normal visualized proximal tibia and fibula. Normal proximal tibiofibular articulation. There is moderate degenerative arthrosis of the medial femorotibial compartment with moderate joint space narrowing. There is mild degenerative arthrosis of the lateral femorotibial compartment. There is mild degenerative arthrosis of the patellofemoral articulation. There is a soft tissue prominence in the suprapatellar region suggesting a small volume joint effusion. The soft tissue structures are unremarkable. RAD/Knee 4 or More Views IMPRESSION: Degenerative arthrosis. Electronically Signed: Juan Antonio MD at 19:59 EDT ,
--- NOTE | 2024-02-28 10:44 | RAD_ITS ---
STUDY: X-RAY - LUMBAR SPINE REASON FOR EXAM: Male, 54 years old. CHRONIC LOW BACK PAIN TECHNIQUE: 5 view(s) of the lumbar spine were obtained. COMPARISON: None FINDINGS: Normal lumbar lordosis. Mild levoscoliosis centered at L3/L4. 2 mm retrolisthesis of L2 on L3 and L3 on L4. There is multilevel endplate spondylosis of the lumbar vertebrae. There is multi-level degenerative disc disease with multi-level disc space narrowing. There is multilevel facet hypertrophy in the lower lumbar spine. The soft tissue structures are unremarkable. RAD/L/S Spine Min 4 Views IMPRESSION: Mild levoscoliosis with diffuse degenerative disc disease with 2 mm retrolisthesis of L2 on L3 and L3 on L4. Electronically Signed: Juan Antonio MD at 19:57 EDT ,
--- NOTE | 2024-02-28 10:44 | RAD_ITS ---
STUDY: X-RAY - RIGHT KNEE REASON FOR EXAM: Male, 54 years old. PAIN TECHNIQUE: 4 view(s) of the knee. COMPARISON: None. FINDINGS: Normal visualized distal femur. Normal visualized proximal tibia and fibula. Normal proximal tibiofibular articulation. There is severe degenerative arthrosis of the medial femorotibial compartment with severe joint space narrowing. There is mild degenerative arthrosis of the lateral femorotibial compartment. There is mild degenerative arthrosis of the patellofemoral articulation. There is a moderate volume joint effusion. The soft tissue structures are unremarkable. RAD/Knee 4 or More Views IMPRESSION: Degenerative arthrosis. Electronically Signed: Juan Antonio MD at 19:58 EDT ,
== END | disposition home or self-care (01) ==
LOC: RAD 10:42
PROVIDERS: PCP Family Medicine; Referring Provider Family Medicine; Visit Provider Family Medicine
DX: M25.561 Pain in right knee (principal); M25.562 Pain in left knee; M54.50 Low back pain, unspecified
CPT/HCPCS: 72110; 73564

== ENCOUNTER → 2024-03-26 | Outpatient (CLI) | payer OTHER, SELFPAY ==
--- OUTSIDE RECORDS SUMMARY | 2024-03-26 07:31 | XMS RPT_ITS | CCD ---
Author Organization [facility] Team Providers [facility] Dedicated Truck Driver Name Role Phone CLARITZA SNYDER Primary Care Unavailable DANNY VILLATORO Attending Unavailable Problems Problem Classification Problem Date Documented Da te Episodic/Chronic Other non-traumatic joint disorders (1 source) Pain in right knee; Translations: [Acute pain of right knee] Onset: 05-28-2023 Episodic Results Test Name Value Interpretation Reference Range Facil ity ALLIED HEALTHon 05-28-2023 ALLIED HEALTH HNO ID: [id number] Author: Keya Potter RT(R) Service: ? Author Type: Technologist Type: Allied Health Filed: 05/28/2023 6:53 PM Note Text: Radiology Service Progress Note PATIENT NAME: Ankur Hubbard DATE OF SERVICE: May 28, 2023 TIME: 6:53 PM PATIENT IDENTITY VERIFICATION COMPLETED USING TWO (2) IDENTIFIERS: Name and Date of confirmed by patient verbally. FALL SCREENING: Has the patient had 2 falls in the last year or 1 fall with injury or currently using an Ambulatory Assistive Device (Walker, Cane, Wheelchair, Crutches, etc.)? Emergency Room Patient: Screened in ED PATIENT GENDER DATA: Male PATIENT RELEVANT IMPLANT DATA REVIEWED: Not Applicable RADIOLOGY DEPARTMENT: General X-ray: Exam(s) Completed: Lower Extremity X-Ray(s): Knee, AP / LAT Right PERIPHERAL IV DATA: Not applicable SIGNED BY: RT Fidelia(R) May 28, 2023 6:53 PM [facility] ED NOTEon 05-28-2023 ED NOTE HNO ID: [id number] Author: Mishel Blount RN Service: Emergency Medicine Author Type: Registered Nurse Type: ED Notes Filed: 05/28/2023 7:58 PM Note Text: Pt verbalizes understanding of discharge instructions. Denies further questions, comments, concerns at this time. Stable on leaving ED. Reports pain improved. [facility] ED PROV NOTEon 05-28-2023 ED PROV NOTE HNO ID: [id number] Author: Danny Villatoro MD Service: Emergency Medicine Author Type: Physician Type: ED Provider Notes Filed: 05/29/2023 12:31 AM Note Text: ED Provider Note Patient Name: Ankur Hubbard : 1970 SERVICE DATE: 05/28/23 History Patient presents with: Knee Injury Patient is presenting to the emergency room for evaluation of pain in his right knee. States that this morning around 8 or 9:00 in the morning he slipped down a muddy embankment. He planted his right foot oddly, and felt a turning type sensation throughout. He has been able to ambulate but has intense pain there. Has noted some swelling in the right knee. No head trauma. No other wounds. No numbness or weakness in the leg. Did not pass out and denies any blood thinners. He did drink some alcohol after the fall in order to numb the pain. States he continues to have pain with movement, but it is improved at rest. Denies other acute sick symptoms PAST MEDICAL HISTORY Diagnosis Date Arthritis Hypertension History reviewed. No pertinent surgical history. No family history on file. Social History Tobacco Use Smoking status: Never Passive exposure: Yes Smokeless tobacco: Never Tobacco comments: 10 cigarettes weekly Substance and Sexual Activity Alcohol use: Yes Alcohol/week: 6.0 standard drinks of alcohol Types: 6 Cans of Beer (12oz) per week Comment: 6 cans daily Drug use: No Sexual activity: Not on file ALLERGIES No Known Allergies Review of Systems Constitutional: Negative for activity change, chills and fever. HENT: Negative for ear discharge and ear pain. Eyes: Negative for pain and discharge. Respiratory: Negative for cough and shortness of breath. Cardiovascular: Negative for chest pain and palpitations. Gastrointestinal: Negative for abdominal pain, diarrhea, nausea and vomiting. Genitourinary: Negative for dysuria and flank pain. Musculoskeletal: Negative for back pain and neck pain. Right knee pain Skin: Negative for color change, rash and wound. Neurological: Negative for dizziness, seizures and numbness. Psychiatric/Behavioral : Negative for self-injury and suicidal ideas. Physical Exam Vitals BP Pulse Temp Temp src Resp SpO2 Weight Height 05/28/23 1748 05/28/23 1748 -- -- 05/28/23 1748 05/28/23 1748 05/28/23 1741 05/28/23 1741 128/82 (!) 97 18 97 % 122.5 kg (270 lb) 1.803 m (5' 11 ) Physical Exam Vitals and nursing note reviewed. Constitutional: General: He is not in acute distress. Appearance: He is well-developed. He is obese. He is not diaphoretic. HENT: Head: Normocephalic and atraumatic. Right Ear: External ear normal. Left Ear: External ear normal. Nose: Nose normal. Mouth/Throat: Mouth: Mucous membranes are moist. Pharynx: No oropharyngeal exudate or posterior oropharyngeal erythema. Comments: Posterior oropharynx without swelling or exudate. Uvula midline without edema. No woody induration underneath the tongue. Tongue is midline without elevation. Eyes: General: No scleral icterus. Pupils: Pupils are equal, round, and reactive to light. Cardiovascular: Rate and Rhythm: Normal rate and regular rhythm. Heart sounds: Normal heart sounds. No murmur heard. No friction rub. No gallop. Comments: DP and PT pulses 2+ equal and symmetric Pulmonary: Effort: Pulmonary effort is normal. No respiratory distress. Breath sounds: Normal breath sounds. No stridor. No wheezing or rales. Chest: Chest wall: No tenderness. Abdominal: General: There is no distension. Palpations: Abdomen is soft. There is no mass. Tenderness: There is no abdominal tenderness. There is no guarding or rebound. Musculoskeletal: General: No tenderness or deformity. Normal range of motion. Cervical back: Normal range of motion and neck supple. Right lower leg: No edema. Left lower leg: No edema. Comments: Tenderness to palpation over the joint line of the right knee. Negative anterior posterior drawer testing. Pain with valgus and varus stress testing worse in the medial aspect. Does not appear notably lax. No open wounds appreciated. Range of motion is intact for the right ankle on passive though this does increase pain. Patient does not want to move his knee actively secondary to pain Skin: General: Skin is warm and dry. Capillary Refill: Capillary refill takes less than 2 seconds. Coloration: Skin is not jaundiced. Findings: No rash. Neurological: General: No focal deficit present. Mental Status: He is alert and oriented to person, place, and time. Cranial Nerves: No cranial nerve deficit. Sensory: No sensory deficit. Motor: No weakness. Psychiatric: Mood and Affect: Mood normal. Behavior: Behavior normal. Diagnostic Testing ED Labs Ordered and Reviewed - No data to display Procedures ED Course / Clinical Impression Clinical Impressions as of 05/29/23 0029 Acute pain of right knee MDM (more content not included)... [facility] XR KNEE 2V AP/LAT RTon 05-28 XR KNEE 2V AP/LAT RT * * *Final Report* * * DATE OF EXAM: May 28 2023 6:43PM LDX 5207 - XR KNEE 2V AP/LAT RT / PROCEDURE REASON: Trauma * * * * Physician Interpretation * * * * EXAMINATION: XR KNEE 2V AP/LAT RT HISTORY: Pt. slipped on mud, twisteed right knee Trauma. TECHNIQUE: XR KNEE 2V AP/LAT RT Laterality: RIGHT Number of different views (projections): 2 M: XB_1 COMPARISON: None RESULT/ IMPRESSION: Moderate osteoarthritis with medial compartment narrowing and tricompartmental osteophytosis. No acute fracture or dislocation. Moderate to large knee joint effusion. No other significant abnormality. Library Clerical Assistant: NAS Transcribe Date/Time: May 28 2023 7:04P Dictated by : SHARRI SALAZAR MD This examination was interpreted and the report reviewed and electronically signed by: SHARRI SALAZAR MD on May 28 2023 7:05PM EST [id number] [facility] CNOVon 04-02-2022 CNOV Office Visit ([facility] ) ANKUR HUBBARD ([id number]) 1970 M Date Time Provider Department 04/02/22 5:15 PM SHILA JORGE [facility] During your visit today, we recorded the following information about you: Shila Jorge APRN.CNP 04/02/2022 5:12 PM Signed TRIAGE: Patient presented to [facility] for c/o right lower chest pain, SOB, worsening pain. Two days ago he fractured a rib (per patient). States he is having pain into abdomen as well as shortness of breath/chest pain Due to nature of patient's complaint and recent trauma and lack of investigative tools available at [facility], recommend patient be seen at nearest ED , patient's is with him will take to [place] ED. Shial Jorge APRN.CNP Referring Provider: SELF [200] Allergies As of Date: 04/02/2022 (No Known Allergies) Date Reviewed: 10/29/2018 Reviewed by: Daylin Caldera Ma - Fully Assessed Primary Visit Diagnosis:Rib pain [R07.81] Prescriptions as of 04/02/2022 - mupirocin (BACTROBAN) 2 % ointment Apply 1 application to affected area three times daily. Location: left finger - albuterol 90 mcg/actuation Aero Inhale 2 Puffs as instructed every 4 hours as needed (bronchospasms). - codeine-guaiFENesin 10-100 mg/5 mL syrup Take 5-10 mL by mouth four times daily as needed for Cough. May cause drowsiness. Problem List As Of Date: 04/02/2022 (None) Encounter Status:Closed by SHILA JORGE on 04/02/22 [facility] Encounters Encounter Date Encounter Type Care Provider Facility Start: 05-28-2023 End: 05-28-2023 Emergency department patient visit [facility] Facility:[facility] Start: 04-02-2022 End: 04-02-2022 ambulatory Facility:[facility] Payers Date Payer Category Payer Unknown [id number] 2018 Unknown [id number] Progress note 04-02-2022 Note Date & Type Note Facility 04-02-2022 Note HNO ID: [id number] Author: Shila Jorge APRN.CNP Service: ? Author Type: Nurse Practitioner Type: Progress Notes Filed: 04/02/2022 5:12 PM Note Text: TRIAGE: Patient presented to [facility] care for c/o right lower chest pain, SOB, worsening pain. Two days ago he fractured a rib (per patient). States he is having pain into abdomen as well as shortness of breath/chest pain Due to nature of patient's complaint and recent trauma and lack of investigative tools available at [facility], recommend patient be seen at nearest ED , patient's is with him will take to [place] ED. Shila Jorge, SAXOPHONE TEACHER.MAINTENANCE OF WAY CLERK [facility] Summary Purpose Family History No Family History Records FoundNo Family History Records Found Advance Directives No Advanced Directives Records FoundNo Advanced Directives Records Found Additional Source Comments (unrecognized sect ion and content) No Status Records FoundNo Status Records Found INFORMATION SOURCE (unrecogn ized section and content) DATE CREATED AUTHOR 04/03/2022 [facility] DATE CREATED AUTHOR AUTHOR'S ORGANIZ ATION 05/30/2023 [facility] FOR RECORDS PERTAINING TO PATIENTS WHO ARE OR HAVE BEEN ENROLLED IN A CHEMICAL DEPENDENCY/SUBSTANCEABUSE PROGRAM, SOME INFORMATION MAY BE OMITTED. This clinical summary was aggregated from multiple sources. Caution should be exercised in using it in the provision of clinical care. This summary normalizes information from multiple sources, and as a consequence, information in this document may materially change the coding, format and clinical context of patient data. In addition, data may be omitted in some cases. CLINICAL DECISIONS SHOULD BE BASED ON THE PRIMARY CLINICAL RECORDS. [facility] provides no warranty or guarantee of the accuracy or completeness of information in this document.
--- NOTE | 2024-03-26 07:32 | US_ITS ---
STUDY: ABDOMINAL ULTRASOUND - RIGHT UPPER QUADRANT; ELASTOGRAPHY REASON FOR VISIT: Male, 54 years old. Fatty infiltration of the liver. TECHNIQUE: Ultrasound evaluation of the right upper quadrant was performed with real-time and static gramajo-scale imaging. Point quantification shear wave elastography was performed (Starline). TECHNICAL QUALITY: Adequate. COMPARISON: Comparison is made with prior study September 26, 2021. FINDINGS: Liver: The liver is enlarged and measures 22.1 cm. There is increased echogenicity consistent with fatty infiltration. The bile ducts are within normal limits. There is hepatic color flow. The direction of portal flow is hepatopetal. There is no demonstrated mass lesion. Median liver stiffness measured 15.3 kPa. Gallbladder: Normal distended gallbladder. The gallbladder wall measures 1.6 mm. There is a negative sonographic Pizano''s sign. There is no pericholecystic fluid. There are no gallstones. There is a 4 mm x 3 mm x 2 mm gallbladder polyp. Common Bile Duct (C.B.D.): The common bile duct measures 4 mm. Pancreas: There is increased echogenicity of the pancreas. There is no demonstrated pancreatic mass or cyst. Right Kidney: Normal size of the right kidney. The right kidney measures 12.5 cm x 6.1 cm x 5.5 cm. Normal renal cortex. The right cortex measures 1.3 cm. There is no demonstrated renal mass or cyst. There is no right hydronephrosis. US/ABD Limited w/ Elastography IMPRESSION: 1. Liver stiffness measures 15.3 kPa compatible with F3-F4 (Moderate to severe liver fibrosis) Metavir score. 2. Hepatomegaly and fatty infiltration of the liver. 3. Small gallbladder polyp. Electronically Signed: Robin Joyce MD at 8:31 EDT ,
== END | disposition home or self-care (01) ==
LOC: US 07:28
PROVIDERS: PCP Family Medicine; Referring Provider Internal Medicine; Visit Provider Internal Medicine
DX: K70.10 Alcoholic hepatitis without ascites (principal); K76.0 Fatty (change of) liver, not elsewhere classified
CPT/HCPCS: 76705; 76981

== ENCOUNTER → 2024-04-13 | Outpatient (CLI) | payer OTHER, SELFPAY ==
[2024-04-13 17:42] LABS: Absolute Lymphocyte Count 1.96 X10^3/uL (0.83-4.51); Absolute Neutrophil Count 5.1 X10^3/uL (2.0-7.7); Basophil# 0.08 X10^3/uL; Eosinophil# 0.07 X10^3/uL; Eosinophils% 0.9 % (0-5); Hematocrit 50.7 % (40-54); Lymphocyte # 1.96 X10^3/ul (0.83-4.51); Lymphocyte % 24.3 % (19-41); Mean Corp Hgb Conc 33.5 g/dL (32-36); Mean Corpuscular Volume 92.3 fL (80-94); Mean Platelet Vol. 10.4 fl (6.2-12.0); Monocyte# 0.81 X10^3/uL; NRBC Flagged by Analyzer 0 % (0-5); Neutrophil # 5.13 X10^3/uL (2.7-7.7); Neutrophil % 63.4 % (47-70); Platelet Count 160 K/mm3 (150-450); RBC Distribution Width CV 13.7 % (11.6-14.6); RBC Distribution Width SD 47.2 fl (35.1-43.9); Red Blood Count 5.49 M/mm3 (4.6-6.2); White Blood Count 8.1 K/mm3 (4.4-11.0)
[2024-04-13 18:16] LABS: Erythrocyte Sedimentation Rate 20 mm/hr (0-20)
[2024-04-13 18:20] LABS: ALB/GLOB Ratio 0.9 RATIO (0.9-2.4); AST(SGOT) 108 U/L (15-37); Alanine Aminotransfer ALT/SGPT 101 U/L (16-61); Alkaline Phosphatase 123 U/L (45-117); Anion Gap 10 (5-15); BUN 11 mg/dL (7-18); BUN/Creat Ratio 13.3 RATIO (10-20); Bilirubin, Direct 0.31 mg/dL (0.00-0.30); Calcium,Total 9.3 mg/dL (8.5-10.1); Chloride 99 mmol/L (98-107); Cholesterol 219 mg/dL (200); Creatinine, Serum 0.82 mg/dL (0.70-1.30); EST Glomerular Filtration Rate 104 mL/min (>60); Est Glom Filt Rate - Afr Amer 126 mL/min (>60); Ferritin 150 ng/mL (26-388); Globulin 4.5 g/dL (2.2-4.2); Glucose 98 mg/dL (74-106); High Density Lipoprotein 53 mg/dL; Iron 157 ug/dL (65-175); Iron Binding Capacity,Total 477 ug/dL (250-450); LDH 251 U/L (87-241); Potassium 3.6 mmol/L (3.5-5.1); Protein, Total 8.5 g/dL (6.4-8.2); Sodium Level 135 mmol/L (136-145); Triglycerides 144 mg/dL; Very Low Density Lipoprotein 29 mg/dL (5-40)
[2024-04-13 18:27] LABS: Hemoglobin A1c 5.8 % (3.8-5.6)
[2024-04-13 18:28] LABS: Prothrombin Time (Protime)PT. 13.5 SECONDS (11.7-14.9)
[2024-04-13 18:30] LABS: HIV - WCH Non-Reactive (Nonreactive)
[2024-04-15 17:08] LABS: ANTINUCLEAR ANTIBODIES DIRECT Negative (Negative); Anti-Mitochondrial AB <20.0 Units (0.0-20.0)
[2024-04-16 21:07] LABS: AFP, Tumor Marker 4.2 ng/mL (0.0-8.4); Angiotensin Convert Enzyme < 15 U/L (14-82); Anti-Smooth Muscle ABS 8 Units (0-19); Ceruloplasmin 23.9 mg/dL (16.0-31.0); Copper, Serum or Plasma 81 ug/dL (69-132); Cytoplasmic Ab (C-ANCA) <1:20 titer (Neg:<1:20); HEPATITIS B SURFACE AG Negative (Negative); Haptoglobin 93 mg/dL (29-370); Hep C Antibodies Non Reactive (Non Reactive); Hepatitis A IgM Antibody Negative (Negative); Hepatitis B Core AB IgM Negative (Negative); Perinuclear Ab (P-ANCA) <1:20 titer (Neg:<1:20); Transferrin 397 mg/dL (177-329)
== END | disposition home or self-care (01) ==
LOC: LAB 16:38
PROVIDERS: PCP Family Medicine; Referring Provider Internal Medicine; Visit Provider Internal Medicine
DX: K22.70 Barrett's esophagus without dysplasia (principal); K70.30 Alcoholic cirrhosis of liver without ascites; K25.9 Gastric ulcer, unspecified as acute or chronic, without hemorrhage or perforation; K76.0 Fatty (change of) liver, not elsewhere classified
CPT/HCPCS: 36415; 80053; 80061; 80074; 82105; 82164; 82248; 82390; 82525; 82728; 83010; 83036; 83516; 83540; 83550; 83615; 84466; 85025; 85610; 85652; 86037; 86038; 86140; 86225; 86235; 86703